=== PATIENT | female | born 1980 | race Two or more races ===

== ENCOUNTER 2016-05-10 16:09 | Emergency (ER) | payer MEDICAID ==
[2016-05-10 16:16] VITALS: TEMP 98.4
[2016-05-10] MEDS ORDERED: ONDANSETRON 4 MG/2 ML VIAL IVP ONE (16:29)
[2016-05-10] MEDS ORDERED: LORazepam 2 MG/ML INJ IVP ONE (16:29)
[2016-05-10] MEDS ORDERED: NS 1,000 ML IV ONE ×2 (16:29→17:45)
--- NOTE | 2016-05-10 16:34 | UCPHY ---
H & P Time Seen by Provider: 05/10/16 16:17 Patient Type: Established HPI/ROS: CHIEF COMPLAINT: Vomiting, abdominal pain HISTORY OF PRESENT ILLNESS: 36-year-old female presents to urgent care by private vehicle complaining of multiple episodes of vomiting over the last 3 days. The patient when on a binge and has been drinking heavily. Her last drink of alcohol was on Monday, 4 days ago. When she woke up on Monday she felt nauseous and has vomited multiple times since that time. She now has developed some epigastric abdominal pain which started yesterday. No hematemesis. No diarrhea. She had similar symptoms and was treated in urgent care September of 2014. No history of alcohol withdrawal seizure. She had previous tubal ligation and denies . She thinks her last known menstrual period was February of 2016. Denies chest pain or difficulty breathing. Denies any reported trauma. Denies urinary symptoms or back pain. REVIEW OF SYSTEMS: Constitutional: No fever, no chills. Eyes: No double or blurry vision. ENT: No sore throat. Respiratory: No cough, no shortness of breath. Cardiac: No chest pain. Gastrointestinal: Abdominal pain, vomiting as above. No diarrhea. Genitourinary: No dysuria. Musculoskeletal: No neck or back pain. Skin: No rashes. Neurological: No headache. Past Medical/Surgical History: Alcoholism, cholecystectomy Social History: Single and lives in [place] Smoking Status: Former smoker Physical Exam: General Appearance: Alert, no distress. Afebrile. No apparent distress. 121/80 , heart rate 62, 98% on room air. Eyes: Pupils equal and round. Extraocular motions are all intact. ENT: Mouth: Mucous membranes moist. Respiratory: No wheezing, rhonchi, or rales, lungs are clear to auscultation. Cardiovascular: Regular rate and rhythm. Gastrointestinal: Abdomen is soft. Tenderness with palpation in the epigastric area. There is no rebound, guarding or masses noted. No CVA tenderness bilaterally. Neurological: Alert and oriented x 3, cranial nerves II through XII grossly intact Skin: Warm and dry, no rashes. Musculoskeletal: Nontender to palpate along the cervical, thoracic or lumbar spine. Neck is supple. Extremities: Full range of motion and no peripheral edema. Psychiatric: Patient is oriented X 3, there is no agitation. Constitutional: Initial Vital Signs Temperature (C) 36.9 C 05/10/16 16:13 Heart Rate 62 05/10/16 16:13 Respiratory Rate 18 05/10/16 16:13 Blood Pressure 121/80 H 05/10/16 16:13 O2 Sat (%) 98 05/10/16 16:13 O2 Delivery Mode Room Air Allergies/Adverse Reactions: No Known Allergies Allergy (Verified 09/09/13 13:14) Home Medications: Medication Instructions Recorded LORazepam [Ativan] 1 mg PO Q6-8PRN PRN #5 tab 05/10/16 Ondansetron Odt [Zofran Odt] 4 mg PO Q4PRN #8 tab 05/10/16 Medical Decision Making ED Course/Re-evaluation: 36-year-old female presents to Urgent Care with multiple episodes of vomiting and now has developed abdominal pain. The patient was seen in September of 2014 with similar symptoms. White blood cell count is not elevated. Chemistries reveal elevated liver function tests. Lipase is normal. Remainder of the chemistries are within normal limits. Patient received IV normal saline as well as IV Zofran and IV Ativan. 6:05pm patient is feeling much better. She is no longer nauseous. She is asking for water to drink. Abdominal pain is better. She is on her 2nd L of IV normal saline. She wad given water to drink. Patient does not have an acute abdomen. I do not think CT imaging is necessary. Differential Diagnosis: Including but not limited to alcoholic gastritis, gastroesophageal reflux disease, peptic ulcer disease, pancreatitis, hepatitis, dehydration - Data Points Laboratory Results: Laboratory Results 05/10/16 16:38 05/10/16 16:38 05/10/16 16:38 WBC 4.29 10^3/uL (3.80-9.50) RBC 5.69 H 10^6/uL (4.18-5.33) Hgb 19.6 H g/dL (12.6-16.3) Hct 57.5 H % (38.0-47.0) MCV 101.1 H fL (81.5-99.8) MCH 34.4 H pg (27.9-34.1) MCHC 34.1 g/dL (32.4-36.7) RDW 13.2 % (11.5-15.2) Plt Count 167 10^3/uL (150-400) MPV 10.3 fL (8.7-11.7) Neut % (Auto) 76.2 H % (39.3-74.2) Lymph % (Auto) 15.6 % (15.0-45.0) [place] % (Auto) 7.5 % (4.5-13.0) Eos % (Auto) 0.0 L % (0.6-7.6) Baso % (Auto) 0.5 % (0.3-1.7) Nucleat RBC Rel Count 0.0 % (0.0-0.2) Absolute Neuts (auto) 3.27 10^3/uL (1.70-6.50) Absolute Lymphs (auto) 0.67 L 10^3/uL (1.00-3.00) Absolute Monos (auto) 0.32 10^3/uL (0.30-0.80) Absolute Eos (auto) 0.00 L 10^3/uL (0.03-0.40) Absolute Basos (auto) 0.02 10^3/uL (0.02-0.10) Absolute Nucleated RBC 0.00 10^3/uL (0-0.01) Immature Gran % 0.2 % (0.0-1.1) Immature Gran # 0.01 10^3/uL (0.00-0.10) Sodium 138 mEq/L (134-144) Potassium 3.7 mEq/L (3.5-5.2) Chloride 92 L mEq/L (97-110) Carbon Dioxide 30 mEq/l (22-31) Anion Gap 16 mEq/L (8-16) BUN 11 mg/dL (7-23) Creatinine 0.6 mg/dL (0.6-1.0) Estimated GFR > 60 Glucose 81 mg/dL (70-100) Calcium 9.0 mg/dL (8.5-10.4) Total Bilirubin 2.3 H mg/dL (0.1-1.4) Conjugated Bilirubin 0.9 H mg/dL (0.0-0.5) Unconjugated Bilirubin 1.4 H mg/dL (0.0-1.1) AST 104 H IU/L (14-46) ALT 67 H IU/L (9-52) Alkaline Phosphatase 390 H IU/L (38-126) Total Protein 7.8 g/dL (6.3-8.2) Albumin 3.8 g/dL (3.5-5.0) Lipase 87.0 IU/L (23-300) Beta HCG, Qual NEGATIVE Ethyl Alcohol < 10 mg/dL (0-10) Medications Given: Discontinued Medications Sodium Chloride (Ns) 1,000 mls @ 0 mls/hr IV ONCE ONE PRN Reason: Wide Open Stop: 05/10/16 16:30 Last Admin: 05/10/16 16:25 Dose: 1,000 mls Lorazepam (Ativan Injection) 1 mg IVP EDNOW ONE Stop: 05/10/16 16:30 Last Admin: 05/10/16 16:55 Dose: 1 mg Ondansetron HCl (Zofran) 4 mg IVP EDNOW ONE Stop: 05/10/16 16:30 Last Admin: 05/10/16 16:55 Dose: 4 mg Departure - Departure Disposition: Home, Routine, Self-Care Clinical Impression: Alcoholic gastritis Qualifiers: Chronicity: acute Gastritis bleeding: without bleeding Qualifier Code: (K29.20 ) Alcoholic gastritis without bleeding Condition: Good Instructions: Acute Nausea and Vomiting (ED), Gastritis (ED) Additional Instructions: Clear liquids and then slowly advance diet as tolerated. Zofran as needed for vomiting. Ativan can also help with vomiting. Do not take Ativan if you have been drinking alcohol. Please consider going back to AA for help with your alcoholism. Return or go to the ED if you develop recurring vomiting or if you feel worse in any way. Referrals: [facility] [Outside] - As per Instructions [facility] [Outside] - As per Instructions Prescriptions: LORazepam [Ativan] 1 mg PO Q6-8PRN PRN #5 tab PRN Reason: prn vomiting Ondansetron Odt [Zofran Odt] 4 mg PO Q4PRN #8 tab - PQRS PQRS Measurement: Not applicable
[2016-05-10 16:45] LABS: % IMMATURE GRANULYOCYTES 0.2 % (0.0-1.1); ABSOLUTE IMMATURE GRANULOCYTES 0.01 10^3/uL (0.00-0.10); ADD DIFF? NO; ADD MORPH? NO; ADD SCAN? NO; ATYPICAL LYMPHOCYTE FLAG 0 (0-99); FRAGMENT RBC FLAG 0 (0-99); HEMATOCRIT 57.5 % (38.0-47.0); HEMOGLOBIN 19.6 g/dL (12.6-16.3); LEFT SHIFT FLG 0 (0-99); LIPEMIA HEMOLYSIS FLAG 90 (0-99); MEAN CELL HEMOGLOBIN 34.4 pg (27.9-34.1); MEAN CELL HEMOGLOBIN CONCENTR. 34.1 g/dL (32.4-36.7); MEAN CELL VOLUME 101.1 fL (81.5-99.8); MEAN PLATELET VOLUME 10.3 fL (8.7-11.7); PLATELET CLUMPS FLAG 0 (0-99); PLATELET COUNT 167 10^3/uL (150-400); RED BLOOD CELL COUNT 5.69 10^6/uL (4.18-5.33); RED CELL DISTRIBUTION WIDTH 13.2 % (11.5-15.2)
[2016-05-10 17:05] LABS: ALANINE AMINOTRANSFERASE 67 IU/L (9-52); ALBUMIN 3.8 g/dL (3.5-5.0); ALKALINE PHOSPHATASE 390 IU/L (38-126); ANION GAP 16 mEq/L (8-16); ASPARTATE AMINOTRANSFERASE 104 IU/L (14-46); BILIRUBIN,TOTAL 2.3 mg/dL (0.1-1.4); BILIRUBIN-CONJUGATED 0.9 mg/dL (0.0-0.5); BILIRUBIN-UNCONJUGATED 1.4 mg/dL (0.0-1.1); CARBON DIOXIDE 30 mEq/l (22-31); CHLORIDE 92 mEq/L (97-110); CREATININE 0.6 mg/dL (0.6-1.0); GLOMERULAR FILTRATION RATE > 60; GLUCOSE 81 mg/dL (70-100); POTASSIUM 3.7 mEq/L (3.5-5.2); SODIUM 138 mEq/L (134-144); TOTAL PROTEIN 7.8 g/dL (6.3-8.2)
[2016-05-10 18:14] LABS: ETHANOL SERUM < 10 mg/dL (0-10)
[2016-05-10 18:48] VITALS: BP 121/69; PULSE 76; RESP 16; O2SAT 93
== END 2016-05-10 18:47 | disposition home or self-care (01) ==
LOC: CED 16:09
DX: K29.20 Alcoholic gastritis without bleeding (principal); R11.2 Nausea with vomiting, unspecified; F10.20 Alcohol dependence, uncomplicated
CPT/HCPCS: 80048-PO; 80076-PO; 83690-PO; 84703-PO; 85025-PO; 96361-PO; 96374-PO; 96375-PO; 99215-PO; G0463-PO; G0480; J2405

== ENCOUNTER 2016-07-28 11:59 | Emergency (ER) | payer MEDICAID ==
[2016-07-28 12:20] VITALS: BP 129/88; PULSE 78; RESP 16; TEMP 98.2
[2016-07-28 12:21] VITALS: O2SAT 90
[2016-07-28] MEDS ORDERED: IPRATROPIUM/ALBUTEROL 3 ML DEYVIAL IH ONE (12:35)
[2016-07-28 12:40] LABS: % IMMATURE GRANULYOCYTES 0.3 % (0.0-1.1); ABSOLUTE IMMATURE GRANULOCYTES 0.01 10^3/uL (0.00-0.10); ADD DIFF? NO; ADD MORPH? NO; ADD SCAN? NO; ATYPICAL LYMPHOCYTE FLAG 10 (0-99); FRAGMENT RBC FLAG 0 (0-99); HEMATOCRIT 56.2 % (38.0-47.0); HEMOGLOBIN 19.4 g/dL (12.6-16.3); LEFT SHIFT FLG 0 (0-99); LIPEMIA HEMOLYSIS FLAG 90 (0-99); MEAN CELL HEMOGLOBIN 33.9 pg (27.9-34.1); MEAN CELL HEMOGLOBIN CONCENTR. 34.5 g/dL (32.4-36.7); MEAN CELL VOLUME 98.3 fL (81.5-99.8); PLATELET CLUMPS FLAG 0 (0-99); PLATELET COUNT 190 10^3/uL (150-400); RED BLOOD CELL COUNT 5.72 10^6/uL (4.18-5.33); RED CELL DISTRIBUTION WIDTH 12.7 % (11.5-15.2)
[2016-07-28] MEDS ORDERED: ASPIRIN 81 MG CHEWABLE TAB PO ONE (12:46)
--- NOTE | 2016-07-28 12:56 | UCPHY ---
H & P Patient Type: Established Chief Complaint Nursing Narrative: Productive cough with dark brown/green sputum , fever (101 F), L lower back pain and L mid back pain with deep breath x 2 month worsening over last week. Time Seen by Provider: 07/28/16 12:28 HPI/ROS: This patient presents with cough, pleuritic pain or dyspnea. She explains that she has had a cough for 4-6 months since quitting smoking. She had been smoking 5 cigarettes a day or so for many years. Over the past 3-4 days her symptoms of chronic cough changed with increasing frequency of cough, feeling of chest congestion and wheeze, occasionally blood tinged sputum and right- sided pleuritic pain. Peak intensity is 8/10-current. She notes partial improvement from [id number] NSAIDs and no other exacerbating factors. She also reports mild lightheadedness today for the 1st time. ROS: No high fevers or chills. No other constitutional symptoms except for mild fatigue over the past 2-3 days. HEENT: No nasal congestion. No sore throat. Pulmonary: As per HPI. She notes occasional blood-tinged sputum, cardiovascular: No heart palpitations. No lower extremity swelling or calf pain. GI: No nausea or vomiting no belly pain. 10 point ROS is otherwise negative. Source: Patient Exam Limitations: No limitations - Personal History LMP (Females 10-55): Irregular Current Tetanus Diphtheria and Acellular Pertussis (TDAP): Yes Tetanus Vaccine Date: 2011 - Medical/Surgical History PMH: Family history is negative for DVT or PE. No history of premature coronary disease Hx Asthma: No Hx Chronic Respiratory Disease: No Hx Diabetes: No Hx Cardiac Disease: No Hx Renal Disease: No Hx Cirrhosis: No Hx Alcoholism: Yes Hx HIV/AIDS: No Hx Splenectomy or Spleen Trauma: No Other PMH: Cholecystectomy, ETOH - Family History Significant Family History: No pertinent family hx - Social History Smoking Status: Former smoker Alcohol Use: Rarely Drug Use: None - Physical Exam Exam: Vital signs are notable for hypoxia to the mid 80s on room air. General Appearance: Alert, no distress. Eyes: Pupils equal and round no pallor or injection. ENT, Mouth: Mucous membranes moist. Respiratory: She has rhonchi bilaterally, expiratory wheezing with prolonged expiratory phase, diminished breath sounds at the right base and slight rales that clear with cough at the right base. Cardiovascular: Regular rate and rhythm. No murmur gallop rub. No JVD. No peripheral edema. Gastrointestinal: Abdomen is soft and nontender, no masses, bowel sounds normal. Neurological: GCS 15 with no focal deficits. Skin: Warm and dry, no rashes. Musculoskeletal: Neck is supple nontender. Extremities are symmetrical, full range of motion. Psychiatric: Mood and affect normal DIFFERENTIAL DIAGNOSIS: After history and physical exam differential diagnosis was considered for PE, pneumonia, bronchitis, pneumothorax, coronary syndrome Constitutional: Initial Vital Signs Temperature (C) 36.8 C 07/28/16 12:00 Heart Rate 78 07/28/16 12:00 Respiratory Rate 16 07/28/16 12:00 Blood Pressure 129/88 H 07/28/16 12:00 O2 Sat (%) 85 L 07/28/16 12:00 O2 Delivery Mode Nasal Cannula O2 (L/minute) 4 Allergies/Adverse Reactions: No Known Allergies Allergy (Verified 07/28/16 12:20) Home Medications: Medication Instructions Recorded Albuterol Hfa Anes Only [Proair 2 puffs IH Q4 PRN #1 mdi 07/28/16 Hfa Icu (*)] Azithromycin [Zithromax] 250 mg PO DAILY #6 tab 07/28/16 Fluticasone Hfa 220 Mcg [Flovent 2 puffs IH DAILY #1 mdi 07/28/16 220 MCG Hfa MDI (*)] Ibuprofen 07/28/16 predniSONE 40 mg PO DAILY #10 tab 07/28/16 Medical Decision Making - Diagnostics EKG Interpretation: 12 lead EKG is performed shortly after arrival in revealed sinus rhythm with mild anterolateral T-wave abnormalities with no previous for comparison. Overall impression: Sinus rhythm with borderline T-wave abnormalities anterolaterally. Please refer to trace master for complete read. Imaging Results: Imaging Impressions Chest X-Ray 07/28/16 12:21 Impression: Mild perihilar bronchitis, without a focal infiltrate. Chest/Thorax CTA 07/28/16 12:56 Impression: 1. No definite pulmonary thromboemboli. 2. No aortic aneurysm or dissection. 3. No pericardial effusion, pleural effusion, or pneumothorax. 4. Mild bronchitis and airways disease. Findings discussed with Emergency Department physician, César Flores, at 1340 hours 07/28/2016. Final report concurs with initial preliminary interpretation. Chest x-ray: Bronchitis without focal infiltrate by my interpretation ED Course/Re-evaluation: IV, aspirin 324 Be given elevated D-dimer sent for CT angio which is negative for PE Patient is then treated with DuoNeb, 2 albuterol nebs with increased aeration decreased wheeze but persistent hypoxia on room air. Patient is treated with Zithromax antibiotic Prednisone 60 mg p.o. Discussion: Patient presents with bronchitis, pneumonitis resulting in hypoxia. We ruled out PE today with negative CT angio. Also no evidence of significant focal infiltrates on her chest x-ray or CT. At the time discharge although she has mild hypoxia on room air she corrects to low 90s on 2 L nasal cannula I think she is safe for discharge home without evidence of sepsis. She is negative lactate here normal CBC. Counseled regarding this and she is comfortable going home - Data Points Laboratory Results: Laboratory Results 07/28/16 12:35 07/28/16 12:35 07/28/16 07/28/16 07/28/16 12:38 12:38 12:35 WBC RBC Hgb Hct MCV MCH MCHC RDW Plt Count MPV Neut % (Auto) Lymph % (Auto) [place] % (Auto) Eos % (Auto) Baso % (Auto) Nucleat RBC Rel Count Absolute Neuts (auto) Absolute Lymphs (auto) Absolute Monos (auto) Absolute Eos (auto) Absolute Basos (auto) Absolute Nucleated RBC Immature Gran % Immature Gran # PT 13.8 SEC SEC (12.0-15.0) INR 1.09 (0.83-1.16) APTT 29.7 SEC SEC (23.0-38.0) D-Dimer 2.32 ug/mLFEU H ug/mLFEU (0.00-0.50) VBG Lactic Acid Sodium Potassium Chloride Carbon Dioxide Anion Gap BUN Creatinine Estimated GFR Glucose Calcium Troponin I < 0.012 ng/mL ng/mL (0-0.034) 07/28/16 07/28/16 07/28/16 12:35 12:35 12:35 WBC 3.86 10^3/uL 10^3/uL (3.80-9.50) RBC 5.72 10^6/uL H 10^6/uL (4.18-5.33) Hgb 19.4 g/dL H g/dL (12.6-16.3) Hct 56.2 % H % (38.0-47.0) MCV 98.3 fL fL (81.5-99.8) MCH 33.9 pg pg (27.9-34.1) MCHC 34.5 g/dL g/dL (32.4-36.7) RDW 12.7 % % (11.5-15.2) Plt Count 190 10^3/uL 10^3/uL (150-400) MPV 10.0 fL fL (8.7-11.7) Neut % (Auto) 51.2 % % (39.3-74.2) Lymph % (Auto) 34.5 % % (15.0-45.0) [place] % (Auto) 10.4 % % (4.5-13.0) Eos % (Auto) 2.8 % % (0.6-7.6) Baso % (Auto) 0.8 % % (0.3-1.7) Nucleat RBC Rel Count 0.0 % % (0.0-0.2) Absolute Neuts (auto) 1.98 10^3/uL 10^3/uL (1.70-6.50) Absolute Lymphs (auto) 1.33 10^3/uL 10^3/uL (1.00-3.00) Absolute Monos (auto) 0.40 10^3/uL 10^3/uL (0.30-0.80) Absolute Eos (auto) 0.11 10^3/uL 10^3/uL (0.03-0.40) Absolute Basos (auto) 0.03 10^3/uL 10^3/uL (0.02-0.10) Absolute Nucleated RBC 0.00 10^3/uL 10^3/uL (0-0.01) Immature Gran % 0.3 % % (0.0-1.1) Immature Gran # 0.01 10^3/uL 10^3/uL (0.00-0.10) PT INR APTT D-Dimer VBG Lactic Acid 1.1 mmol/L mmol/L (0.7-2.1) Sodium 140 mEq/L mEq/L (134-144) Potassium 3.7 mEq/L mEq/L (3.5-5.2) Chloride 98 mEq/L mEq/L (97-110) Carbon Dioxide 28 mEq/l mEq/l (22-31) Anion Gap 14 mEq/L mEq/L (8-16) BUN 8 mg/dL mg/dL (7-23) Creatinine 0.5 mg/dL L mg/dL (0.6-1.0) Estimated GFR > 60 Glucose 78 mg/dL mg/dL (70-100) Calcium 8.9 mg/dL mg/dL (8.5-10.4) Troponin I Medications Given: Discontinued Medications Albuterol (Proventil Neb) 3 ml IH EDNOW ONE Stop: 07/28/16 13:58 Last Admin: 07/28/16 13:52 Dose: 3 ml Albuterol (Proventil Neb) 3 ml IH EDNOW ONE Stop: 07/28/16 14:22 Last Admin: 07/28/16 14:30 Dose: 3 ml Albuterol/Ipratropium (Duoneb) 3 ml IH EDNOW ONE Stop: 07/28/16 12:36 Last Admin: 07/28/16 12:45 Dose: 3 ml Aspirin (Aspirin) 324 mg PO EDNOW ONE Stop: 07/28/16 12:47 Last Admin: 07/28/16 13:15 Dose: 324 mg Azithromycin (Zithromax) 500 mg PO EDNOW ONE PRN Reason: Protocol Stop: 07/28/16 13:45 Last Admin: 07/28/16 13:54 Dose: 500 mg Ketorolac Tromethamine (Toradol) 15 mg IVP EDNOW ONE Stop: 07/28/16 14:21 Last Admin: 07/28/16 14:20 Dose: 15 mg Prednisone (Prednisone) 60 mg PO EDNOW ONE Stop: 07/28/16 13:58 Last Admin: 07/28/16 14:05 Dose: 60 mg Departure - Departure Disposition: Home, Routine, Self-Care Clinical Impression: Pneumonitis, Chest pain, pleuritic, Hypoxia Acute bronchitis Qualifiers: Bronchitis organism: unspecified organism Qualified Code(s): J20.9 - Acute bronchitis, unspecified Condition: Good Instructions: Acute Bronchitis (ED) Additional Instructions: Diagnoses: 1. Acute bronchitis 2. Pneumonitis 3. Pleuritic chest pain 4. hypoxia Plan: Humidifier Albuterol inhaler with spacer for cough, wheeze or shortness of breath Zithromax antibiotic Prednisone as prescribed Flovent steroid inhaler in addition Home oxygen 2 Liters/ minute. Have a family member thump on your back as described to help clear mucus Call Dr. Dempsey - physician listed to arrange follow-up appointment for further evaluation for recheck sometime within the next 1-3 days. go to The emergency department for any significant worsening despite treatment plan Referrals: Rebecca Garcia MD [[facility] Primary Care Provider] - As per Instructions NONE *PRIMARY CARE P,. [Primary Care Provider] - As per Instructions Donato Dempsey MD [[facility] Primary Care Provider] - As per Instructions Stand Alone Forms: Work Excuse Prescriptions: Albuterol Hfa Anes Only [Proair Hfa Icu (*)] 2 puffs IH Q4 PRN #1 mdi PRN Reason: Wheezing Azithromycin [Zithromax] 250 mg PO DAILY #6 tab Fluticasone Hfa 220 Mcg [Flovent 220 MCG Hfa MDI (*)] 2 puffs IH DAILY #1 mdi predniSONE 40 mg PO DAILY #10 tab - PQRS PQRS Measurement: NA
[2016-07-28 13:01] LABS: ANION GAP 14 mEq/L (8-16); CALCIUM 8.9 mg/dL (8.5-10.4); CARBON DIOXIDE 28 mEq/l (22-31); CHLORIDE 98 mEq/L (97-110); CREATININE 0.5 mg/dL (0.6-1.0); GLOMERULAR FILTRATION RATE > 60; GLUCOSE 78 mg/dL (70-100); POTASSIUM 3.7 mEq/L (3.5-5.2); SODIUM 140 mEq/L (134-144)
[2016-07-28] MEDS ORDERED: IOPAMIDOL (ISOVUE 370) 100 ML BTL IV ONE (13:03)
--- NOTE | 2016-07-28 13:11 | CPEKG ---
Heart Rate: 74 RR Interval: 811 P-R Interval: 152 QRSD Interval: 80 QT Interval: 420 QTC Interval: 466 P Marion: 51 QRS Marion: -30 T Wave Marion: 7 EKG Severity - ABNORMAL ECG - EKG Impression: SINUS RHYTHM EKG Impression: LEFT AXIS DEVIATION EKG Impression: NONSPECIFIC T ABNORMALITIES, ANTERIOR LEADS Electronically Signed By: César Flores 28-Jul-2016 15:53:52
[2016-07-28 13:25] LABS: INR 1.09 (0.83-1.16); PROTIME(PATIENT) 13.8 SEC (12.0-15.0)
[2016-07-28 13:26] LABS: APTT 29.7 SEC (23.0-38.0)
[2016-07-28] MEDS ORDERED: AZITHROMYCIN 250 MG TAB PO ONE (13:44)
[2016-07-28] MEDS ORDERED: IPRATROPIUM/ALBUTEROL 3 ML DEYVIAL ONE (13:50)
[2016-07-28] MEDS ORDERED: predniSONE 20 MG TAB PO ONE (13:57)
[2016-07-28] MEDS ORDERED: ALBUTEROL 3 ML DEYVIAL IH ONE ×2 (13:57→14:21)
[2016-07-28] MEDS ORDERED: KETOROLAC 15 MG/1 ML SDV IVP ONE (14:20)
== END 2016-07-28 15:30 | disposition home or self-care (01) ==
LOC: CED 11:59
DX: J18.9 Pneumonia, unspecified organism (principal); J20.9 Acute bronchitis, unspecified; R07.1 Chest pain on breathing; R09.02 Hypoxemia
CPT/HCPCS: 71020-PO; 71275-PO; 80048-PO; 83605-PO; 84484-PO; 85025-PO; 85378-PO; 85610-PO; 85730-PO; 93010-PO; 96374-PO; 99215-PO; G0463-PO; J1885; Q9967

== ENCOUNTER 2016-09-01 12:42 | Observation (INO) | payer MEDICAID ==
[2016-09-01] MEDS ORDERED: IPRATROPIUM/ALBUTEROL 3 ML DEYVIAL IH ONE (13:02)
--- NOTE | 2016-09-01 13:42 | EDPHY ---
H & P Time Seen by Provider: 09/01/16 13:42 HPI/ROS: Chief complaint. Shortness of breath HPI. 36-year-old female presents emergency department with 1 week history of chest tightness, cough that is productive green brown sputum, fever to 102 degrees. She was seen July 28 for similar symptoms and was treated with Zithromax and albuterol and prednisone. She got better. Now symptoms are worse again. Somewhat short of breath especially with exertion. No unusual leg pain or swelling. Some upper congestion in nose. Slight sore throat. ROS Constitutional. Fever Eyes. no problems with vision ENT. Nasal congestion Cardiovascular. Chest tightness especially with cough Respiratory. Shortness of breath and productive cough Abdominal. no abdominal pain, no nausea/vomiting, no diarrhea . no problems urinating MS. no calf pain/swelling, no neck/back pain, no joint pain Skin. no rash Lymph. no swollen glands Neuro. no headache, no dizziness, no difficulty walking or with speech Past Medical/Surgical History: Past medical history cholecystectomy, alcoholism Social History: Single, recently quit smoking, no alcohol Smoking Status: Former smoker Physical Exam: General Appearance: Alert well-developed female moderate distress vital signs show temp 37.3degrees, heart rate 108, O2 saturation 89% on room air Eyes: Pupils equal and round no pallor or injection. ENT, Mouth: Mucous membranes are moist. Respiratory: No retractions inspiratory expiratory rhonchi and end-expiratory wheezing Cardiovascular: Regular rate and rhythm. Gastrointestinal: Abdomen is soft and nontender, no masses, bowel sounds normal. Neurological: Awake and alert, sensory and motor exams grossly normal. Skin: Warm and dry, no rashes. Musculoskeletal: Neck is supple nontender. Extremities symmetrical, full range of motion. Psychiatric: Patient is oriented X 3, there is no agitation. Constitutional: Initial Vital Signs Temperature (C) 37.3 C 09/01/16 12:52 Heart Rate 108 H 09/01/16 12:52 Respiratory Rate 16 09/01/16 12:52 Blood Pressure 109/79 09/01/16 12:52 O2 Sat (%) 89 L 09/01/16 12:52 O2 Delivery Mode Room Air Allergies/Adverse Reactions: No Known Allergies Allergy (Verified 09/01/16 12:50) Home Medications: Medication Instructions Recorded Albuterol Hfa Anes Only [Proair 2 puffs IH Q4 PRN #1 mdi 07/28/16 Hfa Icu (*)] Fluticasone Hfa 220 Mcg [Flovent 2 puffs IH DAILY #1 mdi 07/28/16 220 MCG Hfa MDI (*)] Medical Decision Making - Diagnostics Imaging Results: Imaging Impressions Chest X-Ray 09/01/16 13:14 Impression: 1. Bronchitis/airways disease. 2. No definite focal pneumonia. Chest x-ray interpreted by me is consistent with bronchitis. No pneumonia Procedures: DuoNeb updraft IV normal saline. Solu-Medrol IV Albuterol updraft ED Course/Re-evaluation: Re-evaluation at 2:30 a.m. and patient is lung sounds are somewhat better. She still has rhonchi but the end-expiratory wheezing is improved. Patient's lactate is elevated. She has had blood cultures and him giving her antibiotics. She and I discussed imaging and lab results. We discussed treatment plan including hospitalization. She expresses understanding and agreement I consulted and discussed case with Dr. Bartlett, hospitalist, who agrees to the admission Differential Diagnosis: I considered pneumonia, bronchitis, sepsis. Patient meets criteria for sepsis. She has an elevated lactate which puts her into the category is severe sepsis. Blood pressure is okay though no evidence for septic shock - Data Points Laboratory Results: Laboratory Results 09/01/16 14:15 09/01/16 14:15 09/01/16 09/01/16 09/01/16 14:15 14:15 14:15 WBC 4.67 10^3/uL 10^3/uL (3.80-9.50) RBC 5.44 10^6/uL H 10^6/uL (4.18-5.33) Hgb 18.3 g/dL H g/dL (12.6-16.3) Hct 53.7 % H % (38.0-47.0) MCV 98.7 fL fL (81.5-99.8) MCH 33.6 pg pg (27.9-34.1) MCHC 34.1 g/dL g/dL (32.4-36.7) RDW 13.5 % % (11.5-15.2) Plt Count 171 10^3/uL 10^3/uL (150-400) MPV 10.1 fL fL (8.7-11.7) Neut % (Auto) 38.1 % L % (39.3-74.2) Lymph % (Auto) 49.9 % H % (15.0-45.0) [place] % (Auto) 8.6 % % (4.5-13.0) Eos % (Auto) 2.1 % % (0.6-7.6) Baso % (Auto) 1.1 % % (0.3-1.7) Nucleat RBC Rel Count 0.0 % % (0.0-0.2) Absolute Neuts (auto) 1.78 10^3/uL 10^3/uL (1.70-6.50) Absolute Lymphs (auto) 2.33 10^3/uL 10^3/uL (1.00-3.00) Absolute Monos (auto) 0.40 10^3/uL 10^3/uL (0.30-0.80) Absolute Eos (auto) 0.10 10^3/uL 10^3/uL (0.03-0.40) Absolute Basos (auto) 0.05 10^3/uL 10^3/uL (0.02-0.10) Absolute Nucleated RBC 0.00 10^3/uL 10^3/uL (0-0.01) Immature Gran % 0.2 % % (0.0-1.1) Immature Gran # 0.01 10^3/uL 10^3/uL (0.00-0.10) VBG Lactic Acid 2.7 mmol/L H mmol/L (0.7-2.1) Sodium 146 mEq/L H mEq/L (134-144) Potassium 3.5 mEq/L mEq/L (3.5-5.2) Chloride 101 mEq/L mEq/L (97-110) Carbon Dioxide 27 mEq/l mEq/l (22-31) Anion Gap 18 mEq/L H mEq/L (8-16) BUN 7 mg/dL mg/dL (7-23) Creatinine 0.5 mg/dL L mg/dL (0.6-1.0) Estimated GFR > 60 Glucose 107 mg/dL H mg/dL (70-100) Calcium 8.7 mg/dL mg/dL (8.5-10.4) Medications Given: Discontinued Medications Albuterol (Proventil Neb) 3 ml IH EDNOW ONE Stop: 09/01/16 14:02 Last Admin: 09/01/16 14:17 Dose: 3 ml Albuterol/Ipratropium (Duoneb) 3 ml IH EDNOW ONE Stop: 09/01/16 13:03 Last Admin: 09/01/16 13:09 Dose: 3 ml Sodium Chloride (Ns) 1,000 mls @ 0 mls/hr IV ONCE ONE PRN Reason: Wide Open Stop: 09/01/16 14:02 Last Admin: 09/01/16 14:17 Dose: 1,000 mls Methylprednisolone Sodium Succinate (Solu-Medrol) 125 mg IVP EDNOW ONE Stop: 09/01/16 14:02 Last Admin: 09/01/16 14:17 Dose: 125 mg Departure - Departure Disposition: [facility] Inpatient Acute Clinical Impression: elevated lactate, Severe sepsis Acute bronchitis Qualifiers: Bronchitis organism: unspecified organism Qualified Code(s): J20.9 - Acute bronchitis, unspecified Condition: Fair Referrals: NONE *PRIMARY CARE P,. [Primary Care Provider] - As per Instructions
[2016-09-01] MEDS ORDERED: methylPREDNISolone SOD SUCC 125 MG/2 ML VIAL IVP ONE (14:01)
[2016-09-01] MEDS ORDERED: ALBUTEROL 3 ML DEYVIAL IH ONE (14:01)
[2016-09-01] MEDS ORDERED: NS 1,000 ML IV ONE ×3 (14:01→21:28)
[2016-09-01 14:21] LABS: % IMMATURE GRANULYOCYTES 0.2 % (0.0-1.1); ABSOLUTE IMMATURE GRANULOCYTES 0.01 10^3/uL (0.00-0.10); ADD DIFF? NO; ADD MORPH? NO; ADD SCAN? NO; ATYPICAL LYMPHOCYTE FLAG 10 (0-99); FRAGMENT RBC FLAG 0 (0-99); HEMATOCRIT 53.7 % (38.0-47.0); HEMOGLOBIN 18.3 g/dL (12.6-16.3); LEFT SHIFT FLG 0 (0-99); LIPEMIA HEMOLYSIS FLAG 90 (0-99); MEAN CELL HEMOGLOBIN 33.6 pg (27.9-34.1); MEAN CELL HEMOGLOBIN CONCENTR. 34.1 g/dL (32.4-36.7); MEAN CELL VOLUME 98.7 fL (81.5-99.8); MEAN PLATELET VOLUME 10.1 fL (8.7-11.7); PLATELET CLUMPS FLAG 10 (0-99); PLATELET COUNT 171 10^3/uL (150-400); RED BLOOD CELL COUNT 5.44 10^6/uL (4.18-5.33); RED CELL DISTRIBUTION WIDTH 13.5 % (11.5-15.2)
[2016-09-01 14:35] LABS: ANION GAP 18 mEq/L (8-16); CALCIUM 8.7 mg/dL (8.5-10.4); CARBON DIOXIDE 27 mEq/l (22-31); CHLORIDE 101 mEq/L (97-110); CREATININE 0.5 mg/dL (0.6-1.0); GLOMERULAR FILTRATION RATE > 60; GLUCOSE 107 mg/dL (70-100); POTASSIUM 3.5 mEq/L (3.5-5.2); SODIUM 146 mEq/L (134-144)
[2016-09-01] MEDS ORDERED: AZITHROMYCIN IV 500 MG in D5W 250 ML IV ONE (14:43)
[2016-09-01] MEDS ORDERED: NS 100 ML BAG (MINI-BAG) IV ONE (14:51)
[2016-09-01 16:10] VITALS: RESP 16
[2016-09-01] MEDS ORDERED: HYDROmorphONE/DILAUDID 1 MG/ML SYR IVP PRN (17:48)
[2016-09-01] MEDS ORDERED: ALBUTEROL 3 ML DEYVIAL IH PRN (17:49)
[2016-09-01] MEDS: oxyCODONE IR 5 MG TAB PO PRN ×3 (18:03→20:59)
[2016-09-01] MEDS ORDERED: ONDANSETRON DISINTEGRATING 4 MG TAB PO PRN (20:05)
[2016-09-01] MEDS ORDERED: ACETAMINOPHEN 325 MG TAB PO PRN (20:05)
[2016-09-01] MEDS ORDERED: ONDANSETRON 4 MG/2 ML VIAL IVP PRN (20:05)
[2016-09-01] MEDS ORDERED: NS 1,000 ML IV SCH (20:15)
[2016-09-01 20:21] VITALS: BP 102/65; TEMP 98.7
[2016-09-01 20:38] VITALS: PULSE 85; O2SAT 95
--- NOTE | 2016-09-01 20:59 | GHP ---
[f rep st] HISTORY AND PHYSICAL DATE OF ADMISSION: 09/01/2016 CHIEF COMPLAINT: Cough and shortness of breath. HISTORY OF PRESENT ILLNESS: This is a 36-year-old female, who quit smoking about 5 or 6 months ago. Prior to that she was developing cough with some purulent sputum, and shortness of breath, and whe ezing. This prompted her to quit smoking. However, her symptoms continued, although improved somew hat after initially improved after quitting smoking. She went to urgent care in July and was given steroids. She says this helped somewhat, but continues to have cough. She does produce some green and rust-colored sputum. She has had some chills and fever, and then chills the last couple days. She is wheezing. She also has some chest pressure. REVIEW OF SYSTEMS: A 10-point review of systems was obtained; and other than stated was negative. PAST MEDICAL HISTORY: None. MEDICATIONS: Flovent and albuterol prescribed a month ago. SOCIAL HISTORY: Quit smoking 6 months ago. Also quit alcohol. FAMILY HISTORY: Reviewed and noncontributory. PHYSICAL EXAMINATION: VITAL SIGNS: Afebrile. Blood pressure is 110/73, heart rate 92. Oxygen sat uration was 87% on room air, 94% on 2 L. GENERAL: The patient is well developed, no apparent distr ess. HEENT: Nonicteric sclerae. Extraocular movements intact. Moist mucous membranes. NECK: [place] pple. No thyromegaly. LUNGS: Good effort. There is some coarse wheezes and some slight rhonchi b ilaterally, but fair air movement. CARDIOVASCULAR: Regular rate and rhythm. No murmurs or gallops . ABDOMEN: Positive bowel sounds. Soft, nontender, nondistended. No hepatosplenomegaly. EXTREMI TIES: No clubbing, cyanosis, or edema. SKIN: Without rash. Warm, dry, intact. NEUROLOGIC: Aler t and oriented x3. Moving all 4 extremities equally. PSYCH: Normal affect. LABS: White count is 4, hemoglobin 18, platelets are 171. Lactic acid is elevated at 2.7. Sodium 146, potassium 3.5, BUN is 7, creatinine 0.5, anion gap slightly elevated at 18. IMAGING: Chest x-ray personally reviewed and interpreted as possible bronchitis, but no pneumonia. ASSESSMENT: This is a 36-year-old female, presenting with reactive airway disease with subacute anaid terial bronchitis. PLAN: Reactive airways with bronchitis: The patient has never been treated with antibiotics. She does have some purulent sputum. She might have some subacute bacterial infection. We will treat wi th azithromycin to cover both atypicals and typical. We will also continue with prednisone, start a prednisone burst, as well as nebulizer treatments. /[id number]/MODL
[2016-09-01] MEDS ORDERED: IPRATROPIUM/ALBUTEROL 3 ML DEYVIAL IH SCH (21:00)
[2016-09-01 22:27] LABS: COLOR YELLOW; LEUKOCYTE ESTERASE,URINE NEGATIVE (NEGATIVE); NITRITE,URINE NEGATIVE (NEGATIVE)
[2016-09-02] MEDS ORDERED: AZITHROMYCIN 250 MG TAB PO SCH (09:00)
[2016-09-02] MEDS ORDERED: predniSONE 20 MG TAB PO SCH (09:00)
[2016-09-02] MEDS ORDERED: FLUTICASONE HFA 220 MCG MDI IH SCH (09:00)
== END 2016-09-01 23:10 | disposition left against medical advice (07) ==
LOC: CED 12:42 → CEDHOLD 14:47 → F1N 17:04
PROVIDERS: ADMIT Internal Medicine; ATTEND Internal Medicine
DX: J20.9 Acute bronchitis, unspecified (principal); R06.2 Wheezing; Z87.891 Personal history of nicotine dependence
CPT/HCPCS: 71020; 96361; 96365; 96367; 96375; 99285; G0378; 80048-PO; 83605-PO; 85025-PO; J0456; J0696; J1170

== ENCOUNTER 2016-11-03 15:03 | Emergency (ER) | payer MEDICAID ==
[2016-11-03] MEDS ORDERED: predniSONE 20 MG TAB PO ONE (15:15)
[2016-11-03] MEDS ORDERED: IPRATROPIUM/ALBUTEROL 3 ML DEYVIAL IH ONE (15:15)
--- NOTE | 2016-11-03 15:21 | EDPHY ---
H & P Time Seen by Provider: 11/03/16 15:09 HPI/ROS: HPI Asthma exacerbation. 28-year-old female by private vehicle. She has a history of asthma. She is on home oxygen for a combination of asthma and chronic bronchitis. She reports that she ran out of her medications 2 days ago. These medications include albuterol and Flovent. She reports that since this time she has had progressively worsening shortness of breath and wheezing. She has also had a chronic cough for months and states that this is slightly worse than it has been. She describes it is dry, nonproductive. ROS: Constitutional: No fever, no chills. No weakness. Eyes: No discharge. No changes in vision. ENT: No sore throat. No nasal congestion or rhinorrhea. Respiratory: As above. Cardiac: No chest pain, no palpitations. Gastrointestinal: No abdominal pain, no vomiting, no diarrhea. Genitourinary: No hematuria. No dysuria or increased frequency with urination. Musculoskeletal: No back pain. No neck pain. No myalgias or arthralgias. Skin: No rashes. Neurological: No headache. No focal weakness or altered sensation. Past medical history: Asthma/reactive airway disease/bronchitis. Former alcoholic. Cholecystectomy. She reports that she has not had a drink in months. Social history: Former smoker, quit 6 months ago. Here by herself. As above. Physical Exam: General Appearance: Alert, no distress. This patient is responding to questions appropriately and in full sentences. This patient appears well- hydrated and well-nourished. Eyes: Pupils equal and round no pallor or injection. No lid edema, erythema or injection. Respiratory: There are no retractions, diffuse wheezing, greater on exhalation throughout, decreased air movement, intermittent dry cough. Cardiovascular: Regular rate and rhythm. No murmur. Neurological: Motor sensory function is grossly intact. Cranial nerves are normal. Gait is normal. Skin: Warm and dry, no rashes. Musculoskeletal: Neck is supple and nontender. Extremities are symmetrical. All joints range without pain or impingement. Psychiatric: No agitation. No depression. Database: EKG: Imaging: Chest x-ray AP portable; the cardiac mediastinal silhouette is unremarkable. No evidence of infiltrate or pneumothorax. No acute cardiopulmonary disease process noted. Interpreted by me. Procedures: Emergency department course: Patient placed on a monitor. Room air pulse oximetry 85-86%. On 2-3 L nasal cannula oxygen to comes up into the mid 90s. She will be given 3 [id number] albuterol/Atrovent nebulizer treatments. She was given 80 mg of oral prednisone. internet technology manager will be consulted to arrange for follow-up with a primary care physician for continuity care and ongoing management of her reactive airway disease. She needs refills for her prescription for Flovent and albuterol. Her medical records reviewed. She was seen in the emergency department with a similar presentation this last August. She was admitted to the hospitalist service. However, the hospitalist saw her and it appears that she improved and she was then discharged from the emergency department without having gone to the floor. Follow-up was arranged for her discussed with her but she has not followed up. 4:00 p.m., patient re-evaluated. She has finished the above medications. She states she feels a little bit better. Repeat pulmonary exam she is still tight with poor air movement and diffuse wheezing and rhonchi bilaterally. Room air pulse oximetry is 82%. She will be started on a 15 mL continuous albuterol nebulizer. An IV was established. She will be given 2 g of IV magnesium and 125 mg of IV Solu-Medrol. 6:00 p.m., patient re-evaluated. She is finish the above medications. She is feeling much better. She is requesting discharge at this time. Repeat pulmonary exam she has improved air movement and decreased wheezing. She still has some wheezing on exhalation. No tachypnea. Pulse oximetry on 2 L nasal cannula oxygen is in the mid 90s. She has oxygen at home. I did discuss admission with her. I discussed my concerns. She does not want to be admitted and is declining admission. Plan will be to send her home with a prescription for her Flovent which she will fill immediately as well as a short course of prednisone. She was also given a albuterol meter dose inhaler as a take-home pack. We have arranged for a follow-up appointment on Monday with Eduarda. She ensures me she will follow up for ongoing management of her reactive airway disease. She lives near the emergency department and can easily return if her condition worsens. Return to emergency department precautions were thoroughly reviewed with her with her full understanding. All of her questions were answered. She was discharged in good condition. Differential Diagnosis: The differential diagnosis on this patient includes but is not limited to acute bronchitis, asthma exacerbation, reactive airway disease, pneumonia, congestive heart failure. This represents a partial list of diagnoses considered. These considerations are based on history, physical exam, past history, reassessment and diagnostic testing. Smoking Status: Former smoker Constitutional: Initial Vital Signs Temperature (C) 37.1 C 11/03/16 15:10 Heart Rate 84 11/03/16 15:10 Respiratory Rate 20 11/03/16 15:10 Blood Pressure 113/86 H 11/03/16 15:10 O2 Sat (%) 96 11/03/16 15:10 O2 Delivery Mode Room Air O2 (L/minute) 2 Allergies/Adverse Reactions: No Known Allergies Allergy (Verified 11/03/16 15:14) Home Medications: Medication Instructions Recorded Fluticasone Hfa 220 Mcg [Flovent 2 puffs IH DAILY #1 mdi 07/28/16 220 MCG Hfa MDI (*)] Albuterol Hfa Anes Only [Proair 2 puffs IH Q4 PRN #1 mdi 11/03/16 Hfa Icu (*)] Fluticasone Hfa 220 Mcg [Flovent 1 puffs IH BID #1 mdi 11/03/16 220 MCG Hfa MDI (*)] predniSONE [prednisone 20mg (RX)] 60 mg PO DAILY #9 tab 11/03/16 Medical Decision Making - Diagnostics Imaging Results: Imaging Impressions Chest X-Ray 11/03/16 15:16 Impression: Stable and negative. - Data Points Medications Given: Discontinued Medications Albuterol (Proventil Neb) 15 ml IH CONT ONE Stop: 11/03/16 16:01 Last Admin: 11/03/16 16:13 Dose: 15 ml Albuterol Sulfate (Proventil Inh Prepack) 1 mdi TAKEHOME EDNOW ONE Stop: 11/03/16 15:52 Last Admin: 11/03/16 18:35 Dose: 1 mdi Albuterol/Ipratropium (Duoneb) 9 ml IH EDNOW ONE Stop: 11/03/16 15:16 Last Admin: 11/03/16 15:31 Dose: 9 ml Magnesium Sulfate (Magnesium Sulf 2 Gm (Premix)) 50 mls @ 50 mls/hr IV EDNOW ONE Stop: 11/03/16 16:59 Last Admin: 11/03/16 16:17 Dose: 50 mls Methylprednisolone Sodium Succinate (Solu-Medrol) 125 mg IVP EDNOW ONE Stop: 11/03/16 16:01 Last Admin: 11/03/16 16:12 Dose: 125 mg Prednisone (Prednisone) 80 mg PO EDNOW ONE Stop: 11/03/16 15:16 Last Admin: 11/03/16 15:29 Dose: 80 mg Departure - Departure Disposition: Home, Routine, Self-Care Clinical Impression: Asthma exacerbation, Bronchitis Condition: Good Instructions: Albuterol (By breathing), How to Use a Nebulizer (ED), Bronchospasm (ED) Additional Instructions: Read and follow provided instructions. Follow-up with your primary care physician on Monday as we have arranged for you and as scheduled through [facility]. Take medication as prescribed through entire course of treatment. Return to the emergency department immediately for worsening shortness of breath , cough, fever, wheezing or other serious concerns. Referrals: NONE *PRIMARY CARE P,. [Primary Care Provider] - As per Instructions [facility] [Clinic] - As per Instructions Stand Alone Forms: School Excuse Prescriptions: Albuterol Hfa Anes Only [Proair Hfa Icu (*)] 2 puffs IH Q4 PRN #1 mdi PRN Reason: Wheezing Fluticasone Hfa 220 Mcg [Flovent 220 MCG Hfa MDI (*)] 1 puffs IH BID #1 mdi predniSONE [prednisone 20mg (RX)] 60 mg PO DAILY #9 tab
[2016-11-03] MEDS ORDERED: ALBUTEROL INH PREPACK MDI TAKEHOME ONE ×2 (15:51→18:32)
[2016-11-03] MEDS ORDERED: ALBUTEROL 3 ML DEYVIAL IH ONE (16:00)
[2016-11-03] MEDS ORDERED: methylPREDNISolone SOD SUCC 125 MG/2 ML VIAL IVP ONE (16:00)
[2016-11-03] MEDS ORDERED: MAGNESIUM SULF 2 GM/WATER 50 ML IV ONE (16:00)
[2016-11-03] MEDS ORDERED: ALBUTEROL 3 ML DEYVIAL ONE (16:04)
[2016-11-03 18:45] VITALS: BP 116/72; PULSE 118; RESP 22; TEMP 98.4; O2SAT 88
== END 2016-11-03 18:48 | disposition home or self-care (01) ==
LOC: CED 15:03
DX: J45.901 Unspecified asthma with (acute) exacerbation (principal); Z87.891 Personal history of nicotine dependence
CPT/HCPCS: 71010-PO

== ENCOUNTER 2016-11-30 19:07 | Emergency (ER) | payer MEDICAID ==
--- NOTE | 2016-11-30 19:09 | EDPHY ---
H & P HPI/ROS: HPI CHIEF COMPLAINT: Vomiting and shortness of breath HISTORY OF PRESENT ILLNESS: This patient very pleasant 36-year-old female she does have significant past medical history for severe asthma chronic bronchitis and oxygen dependent. She wears 2 L of oxygen. She decided come to the emergency room by private vehicle. She did not bring her oxygen with her. Upon arrival here we placed on oxygen. She decided come the emergency room if she has had 2 days or 48 hours of persistent nausea vomiting. She denies any chest pain or abdominal pain. Denies diarrhea, or urinary symptoms. She does report a fever 101 yesterday. No fever today. Main complaint is nausea vomiting. She distally tells me she feels weak all over. Past Medical History: Asthma, chronic bronchitis, alcoholism Past Surgical History: Gallbladder removal Social History: History of tobacco abuse and alcohol abuse Family History: Noncontributory ROS REVIEW OF SYSTEMS: A comprehensive 10 point review of systems is otherwise negative aside from elements mentioned in the history of present illness. Exam Constitutional appears well nontoxic no acute distress triage nursing summary reviewed, vital signs reviewed, awake/alert. Oxygen saturation at triage 85% on room air. 2 L nasal cannula was applied sat is 92% Eyes normal conjunctivae and sclera, EOMI, PERRLA. HENT normal inspection, atraumatic, moist mucus membranes, no epistaxis, neck supple/ no meningismus, no raccoon eyes. Respiratory wheezing bilaterally faint, , normal breath sounds, no respiratory distress Cardiovascular rate normal, regular rhythm, no murmur, no edema, distal pulses normal. Gastrointestinal soft, non-tender, no rebound, no guarding, normal bowel sounds, no distension, no pulsatile mass. Genitourinary no CVA tenderness. Musculoskeletal no midline vertebral tenderness, full range of motion, no calf swelling, no tenderness of extremities, no meningismus, good pulses, neurovascularly intact. Skin pink, warm, & dry, no rash, skin atraumatic. Neurologic awake, alert and oriented x 3, AAOx3, moves all 4 extremities equally, motor intact, sensory intact, CN II-XII intact, normal cerebellar, normal vision, normal speech. Psychiatric normal mood/affect. Heme/Lymph/Immune no lymphadenopathy. Differential Diagnosis: Includes but is not limited to in a particular order, dehydration, electrolyte disturbance, pneumonia, bowel obstruction, gastritis, electrolyte disturbance, hyponatremia, urinary tract infection Medical Decision Making: Plan for this patient IV establishment with IV fluid bolus 4 mg Zofran, DuoNeb breathing treatment, chest x-ray two view, check electrolytes, urinalysis and re-evaluate. Re-evaluation: EKG interpretation by me on record in [employer] system. Impression time of EKG 1929, this is sinus rhythm rate of 82, left anterior fascicular block present. T-wave abnormalities noted V1 V2 V3. Otherwise no ST elevation. No significant ST depression. Unremarkable EKG except for T-wave abnormality noted in V1 V2 V3. Will compared to old EKG. 2038: Re-evaluation at this time patient resting comfortably. She feels much better after DuoNeb breathing treatment. Re-examination of her lungs wheezing greatly improved. No respiratory distress. Blood work has been reviewed. Noted elevated LFTs and bilirubin. She has had similar elevations in the past. This does not appear to be in acute change. She has no right upper quadrant pain. She understands follow-up with primary care doctor about this. Again make sure she refrain from drinking alcohol. Allow her to go home with oral prednisone and albuterol inhaler. 60 mg prednisone has been given here in the emergency room. She understands to return emergency room she develops worsening symptoms shortness of breath, fever, vomiting questions or concerns. Chest x-ray reviewed. No acute cardiopulmonary disease. Image interpreted by myself. Pulse ox normal on 2 L nasal cannula. No respiratory distress. Feeling well. Patient like to go home. Source: Patient - Personal History Tetanus Vaccine Date: 2011 - Medical/Surgical History Hx Asthma: Yes Hx Chronic Respiratory Disease: No Hx Diabetes: No Hx Cardiac Disease: No Hx Renal Disease: No Hx Cirrhosis: No Hx Alcoholism: Yes Hx HIV/AIDS: No Hx Splenectomy or Spleen Trauma: No Other PMH: Cholecystectomy, ETOH; past HX of Drug Abuse. Surg-tubal, ASTHMA - Social History Smoking Status: Former smoker Constitutional: Initial Vital Signs Temperature (C) 37.1 C 11/30/16 19:19 Heart Rate 89 11/30/16 19:19 Respiratory Rate 20 11/30/16 19:19 Blood Pressure 121/75 H 11/30/16 19:19 O2 Sat (%) 85 L 11/30/16 19:19 O2 Delivery Mode Room Air Allergies/Adverse Reactions: No Known Allergies Allergy (Verified 11/30/16 19:17) Home Medications: Medication Instructions Recorded Fluticasone Hfa 220 Mcg [Flovent 2 puffs IH DAILY #1 mdi 07/28/16 220 MCG Hfa MDI (*)] Albuterol Hfa Anes Only [Proair 2 puffs IH Q4 PRN #1 mdi 11/03/16 Hfa Icu (*)] Albuterol [Proventil Inhaler HFA 1 - 2 puffs IH Q4H #1 mdi 11/30/16 (*)] predniSONE 60 mg PO DAILY #15 tab 11/30/16 Medical Decision Making - Data Points Laboratory Results: Laboratory Results 11/30/16 19:40 11/30/16 19:40 11/30/16 11/30/16 11/30/16 19:55 19:40 19:40 WBC RBC Hgb Hct MCV MCH MCHC RDW Plt Count MPV Neut % (Auto) Lymph % (Auto) [place] % (Auto) Eos % (Auto) Baso % (Auto) Nucleat RBC Rel Count Absolute Neuts (auto) Absolute Lymphs (auto) Absolute Monos (auto) Absolute Eos (auto) Absolute Basos (auto) Absolute Nucleated RBC Immature Gran % Immature Gran # PT 13.7 SEC SEC (12.0-15.0) INR 1.08 (0.83-1.16) APTT 27.4 SEC SEC (23.0-38.0) VBG Lactic Acid 1.7 mmol/L mmol/L (0.7-2.1) Sodium Potassium Chloride Carbon Dioxide Anion Gap BUN Creatinine Estimated GFR Glucose Calcium Total Bilirubin Conjugated Bilirubin Unconjugated Bilirubin AST ALT Alkaline Phosphatase Troponin I Total Protein Albumin Lipase Beta HCG, Qual NEGATIVE 11/30/16 11/30/16 19:40 19:40 WBC 3.73 10^3/uL L 10^3/uL (3.80-9.50) RBC 4.79 10^6/uL 10^6/uL (4.18-5.33) Hgb 16.2 g/dL g/dL (12.6-16.3) Hct 46.0 % % (38.0-47.0) MCV 96.0 fL fL (81.5-99.8) MCH 33.8 pg pg (27.9-34.1) MCHC 35.2 g/dL g/dL (32.4-36.7) RDW 13.4 % % (11.5-15.2) Plt Count 227 10^3/uL 10^3/uL (150-400) MPV 10.3 fL fL (8.7-11.7) Neut % (Auto) 59.4 % % (39.3-74.2) Lymph % (Auto) 28.2 % % (15.0-45.0) [place] % (Auto) 10.2 % % (4.5-13.0) Eos % (Auto) 0.8 % % (0.6-7.6) Baso % (Auto) 1.1 % % (0.3-1.7) Nucleat RBC Rel Count 0.0 % % (0.0-0.2) Absolute Neuts (auto) 2.22 10^3/uL 10^3/uL (1.70-6.50) Absolute Lymphs (auto) 1.05 10^3/uL 10^3/uL (1.00-3.00) Absolute Monos (auto) 0.38 10^3/uL 10^3/uL (0.30-0.80) Absolute Eos (auto) 0.03 10^3/uL 10^3/uL (0.03-0.40) Absolute Basos (auto) 0.04 10^3/uL 10^3/uL (0.02-0.10) Absolute Nucleated RBC 0.00 10^3/uL 10^3/uL (0-0.01) Immature Gran % 0.3 % % (0.0-1.1) Immature Gran # 0.01 10^3/uL 10^3/uL (0.00-0.10) PT INR APTT VBG Lactic Acid Sodium 139 mEq/L mEq/L (134-144) Potassium 3.3 mEq/L L mEq/L (3.5-5.2) Chloride 95 mEq/L L mEq/L (97-110) Carbon Dioxide 30 mEq/l mEq/l (22-31) Anion Gap 14 mEq/L mEq/L (8-16) BUN 9 mg/dL mg/dL (7-23) Creatinine 0.5 mg/dL L mg/dL (0.6-1.0) Estimated GFR > 60 Glucose 85 mg/dL mg/dL (70-100) Calcium 8.4 mg/dL L mg/dL (8.5-10.4) Total Bilirubin 1.8 mg/dL H mg/dL (0.1-1.4) Conjugated Bilirubin 1.0 mg/dL H mg/dL (0.0-0.5) Unconjugated Bilirubin 0.8 mg/dL mg/dL (0.0-1.1) AST 359 IU/L H IU/L (14-46) ALT 143 IU/L H IU/L (9-52) Alkaline Phosphatase 411 IU/L H IU/L (38-126) Troponin I < 0.012 ng/mL ng/mL (0.000-0.034) Total Protein 6.9 g/dL g/dL (6.3-8.2) Albumin 3.6 g/dL g/dL (3.5-5.0) Lipase 123 IU/L IU/L (23-300) Beta HCG, Qual Medications Given: Discontinued Medications Albuterol/Ipratropium (Duoneb) 3 ml IH EDNOW ONE Stop: 11/30/16 19:21 Last Admin: 11/30/16 19:37 Dose: 3 ml Sodium Chloride (Ns) 1,000 mls @ 0 mls/hr IV EDNOW ONE; Wide Open PRN Reason: Protocol Stop: 11/30/16 19:20 Last Admin: 11/30/16 19:38 Dose: 1,000 mls Ondansetron HCl (Zofran) 4 mg IVP EDNOW ONE Stop: 11/30/16 19:20 Last Admin: 11/30/16 19:38 Dose: 4 mg Departure - Departure Disposition: Home, Routine, Self-Care Clinical Impression: Active asthma Condition: Good Instructions: Asthma (ED), Wheezing (ED), Bronchospasm (ED) Additional Instructions: 1. Return emergency room if you have any worsening symptoms questions or concerns Referrals: GIGI GONZALEZ,. [Primary Care Provider] - As per Instructions Prescriptions: Albuterol [Proventil Inhaler HFA (*)] 1 - 2 puffs IH Q4H #1 mdi predniSONE 60 mg PO DAILY #15 tab
[2016-11-30] MEDS ORDERED: NS 1,000 ML IV ONE (19:19)
[2016-11-30] MEDS ORDERED: ONDANSETRON 4 MG/2 ML VIAL IVP ONE (19:19)
[2016-11-30] MEDS ORDERED: IPRATROPIUM/ALBUTEROL 3 ML DEYVIAL IH ONE ×2 (19:20→20:44)
[2016-11-30 19:21] VITALS: TEMP 98.8; O2SAT 85
--- NOTE | 2016-11-30 19:37 | CPEKG ---
Heart Rate: 82 RR Interval: 732 P-R Interval: 148 QRSD Interval: 78 QT Interval: 400 QTC Interval: 468 P [place]: 55 QRS [place]: -59 T Wave [place]: 17 EKG Severity - ABNORMAL ECG - EKG Impression: SINUS RHYTHM EKG Impression: LEFT ANTERIOR FASCICULAR BLOCK Electronically Signed By: Wil Hough 05-Dec-2016 07:40:27
[2016-11-30 19:55] LABS: % IMMATURE GRANULYOCYTES 0.3 % (0.0-1.1); ABSOLUTE IMMATURE GRANULOCYTES 0.01 10^3/uL (0.00-0.10); ADD DIFF? NO; ADD MORPH? NO; ADD SCAN? NO; ATYPICAL LYMPHOCYTE FLAG 0 (0-99); FRAGMENT RBC FLAG 0 (0-99); HEMOGLOBIN 16.2 g/dL (12.6-16.3); LEFT SHIFT FLG 0 (0-99); LIPEMIA HEMOLYSIS FLAG 90 (0-99); MEAN CELL HEMOGLOBIN 33.8 pg (27.9-34.1); MEAN CELL HEMOGLOBIN CONCENTR. 35.2 g/dL (32.4-36.7); MEAN PLATELET VOLUME 10.3 fL (8.7-11.7); PLATELET CLUMPS FLAG 0 (0-99); PLATELET COUNT 227 10^3/uL (150-400); RED BLOOD CELL COUNT 4.79 10^6/uL (4.18-5.33); RED CELL DISTRIBUTION WIDTH 13.4 % (11.5-15.2)
[2016-11-30 20:05] LABS: INR 1.08 (0.83-1.16); PROTIME(PATIENT) 13.7 SEC (12.0-15.0)
[2016-11-30 20:06] LABS: APTT 27.4 SEC (23.0-38.0)
[2016-11-30 20:09] LABS: ALANINE AMINOTRANSFERASE 143 IU/L (9-52); ALBUMIN 3.6 g/dL (3.5-5.0); ALKALINE PHOSPHATASE 411 IU/L (38-126); ANION GAP 14 mEq/L (8-16); ASPARTATE AMINOTRANSFERASE 359 IU/L (14-46); BILIRUBIN,TOTAL 1.8 mg/dL (0.1-1.4); BILIRUBIN-UNCONJUGATED 0.8 mg/dL (0.0-1.1); CALCIUM 8.4 mg/dL (8.5-10.4); CARBON DIOXIDE 30 mEq/l (22-31); CHLORIDE 95 mEq/L (97-110); CREATININE 0.5 mg/dL (0.6-1.0); GLOMERULAR FILTRATION RATE > 60; GLUCOSE 85 mg/dL (70-100); POTASSIUM 3.3 mEq/L (3.5-5.2); SODIUM 139 mEq/L (134-144); TOTAL PROTEIN 6.9 g/dL (6.3-8.2)
[2016-11-30 20:20] LABS: TROPONIN I < 0.012 ng/mL (0.000-0.034)
[2016-11-30] MEDS ORDERED: ALBUTEROL 3 ML DEYVIAL ONE (20:44)
[2016-11-30] MEDS ORDERED: predniSONE 20 MG TAB PO ONE (20:44)
[2016-11-30] MEDS ORDERED: predniSONE 20 MG TAB ONE (20:44)
[2016-11-30 21:48] VITALS: BP 120/75; PULSE 95; RESP 15
== END 2016-11-30 22:06 | disposition home or self-care (01) ==
LOC: CED 19:07
DX: J45.909 Unspecified asthma, uncomplicated (principal); E86.9 Volume depletion, unspecified; Z87.891 Personal history of nicotine dependence
CPT/HCPCS: 71020-PO; 80048-PO; 80076-PO; 83605-PO; 83690-PO; 84484-PO; 84703-PO; 85025-PO; 85610-PO; 85730-PO; 96374; J2405

== ENCOUNTER 2017-02-07 20:37 | Inpatient (IN) | payer MEDICAID ==
[2017-02-07] MEDS ORDERED: ONDANSETRON 4 MG/2 ML VIAL IVP ONE (20:52)
[2017-02-07] MEDS ORDERED: LIDOCAINE 1% 100 MG in NS 100 ML IV ONE (20:52)
[2017-02-07] MEDS ORDERED: NS 1,000 ML IV ONE (20:52)
--- NOTE | 2017-02-07 20:55 | EDPHY ---
H & P Stated Complaint: RUQ pain, Hx ETOH abuse, Binge drinking 14 days ago. Time Seen by Provider: 02/07/17 20:49 HPI/ROS: CHIEF COMPLAINT: Epigastric pain HISTORY OF PRESENT ILLNESS: Patient is a 37-year-old female with a history of alcohol abuse as well as chronic bronchitis on 2 L of oxygen and cholecystectomy comes to the emergency department complaining of right upper quadrant/epigastric pain for the last 4 days. She has also had vomiting nonbloody. No diarrhea. No fever. No rash. No trauma. She states that she had been sober for a year but fell off the wagon about 2 weeks ago. She has had pancreatitis in the past. She also states that her urine is dark. No chest pain or shortness of breath. REVIEW OF SYSTEMS: Constitutional: denies: chills, fever, recent illness, recent injury EENTM: denies: blurred vision, double vision, nose congestion Respiratory: denies: cough, shortness of breath Cardiac: denies: chest pain, irregular heart rate, lightheadedness, palpitations Gastrointestinal/Abdominal: denies: abdominal pain, diarrhea, nausea, vomiting, blood streaked stools Genitourinary: denies: dysuria, frequency, hematuria, pain Musculoskeletal: denies: joint pain, muscle pain Skin: denies: lesions, rash, jaundice, bruising Neurological: denies: headache, numbness, paresthesia, tingling, dizziness, weakness Hematologic/Lymphatic: denies: blood clots, easy bleeding, easy bruising Immunologic/allergic: denies: HIV/AIDS, transplant EXAM: GENERAL: no acute distress. HEAD: Atraumatic, normocephalic. EYES: Pupils equal round and reactive to light, extraocular movements intact, sclera anicteric, conjunctiva are normal. ENT: TMs normal, nares patent, oropharynx clear without exudates. Moist mucous membranes. NECK: Normal range of motion, supple without lymphadenopathy or JVD. LUNGS: Breath sounds clear to auscultation bilaterally and equal. No wheezes rales or rhonchi. HEART: Regular rate and rhythm without murmurs, rubs or gallops. ABDOMEN: Firm enlarged liver, mildly tender, no rebound or guarding. BACK: No CVA tenderness, no spinal tenderness, step-offs or deformities EXTREMITIES: Normal range of motion, no pitting or edema. No clubbing or cyanosis. NEUROLOGICAL: Cranial nerves II through XII grossly intact. Normal speech, normal gait. 5/5 strength, normal movement in all extremities, normal sensation PSYCH: Normal mood, normal affect. SKIN: Slightly jaundice, Warm, dry, normal turgor, no visible rashes or lesions. Source: Patient, Old records - Personal History LMP (Females 10-55): Irregular Current Tetanus/Diphtheria Vaccine: Yes Current Tetanus Diphtheria and Acellular Pertussis (TDAP): Yes Tetanus Vaccine Date: 2011 - Medical/Surgical History Hx Asthma: Yes Hx Chronic Respiratory Disease: Yes Hx Diabetes: No Hx Cardiac Disease: No Hx Renal Disease: No Hx Cirrhosis: No Hx Alcoholism: Yes Hx HIV/AIDS: No Hx Splenectomy or Spleen Trauma: No Other PMH: Cholecystectomy, ETOH; past HX of Drug Abuse. Surg-tubal, ASTHMA, CPOD-uses 2L NC cont. - Family History Significant Family History: No pertinent family hx - Social History Smoking Status: Former smoker Alcohol Use: Occasionally Constitutional: Initial Vital Signs Temperature (C) 36.6 C 02/07/17 20:49 Heart Rate 94 02/07/17 20:49 Respiratory Rate 18 02/07/17 20:49 Blood Pressure 121/82 H 02/07/17 20:49 O2 Sat (%) 90 L 02/07/17 20:49 O2 Delivery Mode Nasal Cannula O2 (L/minute) 2 Allergies/Adverse Reactions: No Known Allergies Allergy (Verified 02/07/17 20:51) Home Medications: Medication Instructions Recorded Albuterol [Proventil Inhaler HFA 1 - 2 puffs IH DAILY PRN 02/08/17 (*)] Albuterol [Proventil Neb] 3 ml IH QID PRN 02/08/17 Fluticasone/Salmeter 250/50Mcg 1 puffs IH BID 02/08/17 [Advair 250/50 (*)] Ibuprofen [Motrin (*)] 200 mg PO DAILY PRN 02/08/17 Medical Decision Making - Diagnostics EKG Interpretation: An EKG obtained and was read and documented in trace view. Please see trace view for full reading and report. Sinus rhythm, nonspecific T-wave abnormality similar to July this year Imaging: Discussed imaging studies w/ academic associate Radiologist ED Course/Re-evaluation: 10:13 p.m. the patient's repeat potassium is worse. Will give her p. o. and IV potassium and continue to hydrate and provided anti nausea and pain medication. CT is pending. I discussed the case with Dr. Nieto who will admit to the PCU. Suspect the patient has cirrhosis with history of alcohol abuse and now hypokalemia secondary to vomiting. Differential Diagnosis: Partial list of the Differential diagnosis considered include but were not limited to; pancreatitis, biliary stenosis, hepatitis, cirrhosis, electrolyte abnormality and although unlikely based on the history and physical exam, I also considered ischemia, obstruction, abscess. Critical Care Time: Critical care time spent by me, Dr. Don exclusive with this patient was 45 minutes, exclusive of the PA time exclusive of procedures. The organ system that was at risk was GI and I gave IV fluids, potassium, medication, consultation and admission to prevent worsening of the patient's condition - Data Points Laboratory Results: Laboratory Results 02/07/17 20:50 02/07/17 21:30 02/07/17 07:35 Potassium 2.8 mEq/L L mEq/L (3.5-5.2) Phosphorus 3.2 mg/dL mg/dL (2.5-4.5) Magnesium 1.6 mg/dL mg/dL (1.6-2.3) Medications Given: Albuterol (Proventil Neb) 3 ml IH Q2HRS PRN PRN Reason: Short of Breath/Dyspnea Stop: 08/07/17 04:06 Last Admin: 02/08/17 04:27 Dose: 3 ml Enoxaparin Sodium (Lovenox) 40 mg SC DAILY [facility] Stop: 08/07/17 08:59 Last Admin: 02/08/17 10:56 Dose: 40 mg Folic Acid (Folic Acid) 1 mg PO DAILY [facility] Stop: 08/07/17 08:59 Last Admin: 02/08/17 10:56 Dose: Not Given Hydromorphone/Sodium Chloride (Hydromorphone) 0.2 - 0.4 mg IVP Q4HRS PRN PRN Reason: Pain, Severe Unable to Take PO Stop: 02/17/17 22:21 Last Admin: 02/08/17 16:42 Dose: 0.4 mg Potassium Chloride/Sodium Chloride (Ns W/ 20 Kcl/L) 1,000 mls @ 125 mls/hr IV CONT [facility] Stop: 08/06/17 22:29 Last Admin: 02/08/17 13:26 Dose: 1,000 mls Lorazepam (Ativan) 1 mg PO Q4HRS PRN PRN Reason: Agitation if able to take PO Stop: 08/06/17 22:25 Last Admin: 02/08/17 10:56 Dose: 1 mg Lorazepam (Ativan Injection) 0.5 - 1 mg IVP Q6HRS PRN PRN Reason: Anxiety, Unable to Take PO Stop: 08/07/17 05:10 Last Admin: 02/08/17 05:40 Dose: 1 mg Multivitamins (Tab-A-Chan) 1 each PO DAILY [facility] Stop: 08/07/17 08:59 Last Admin: 02/08/17 11:17 Dose: Not Given Ondansetron HCl (Zofran) 4 mg IVP Q4HRS PRN PRN Reason: Nausea/Vomiting, Can't Take PO Stop: 08/06/17 22:21 Last Admin: 02/08/17 03:53 Dose: 4 mg Pantoprazole Sodium (Protonix) 40 mg IVP BID [facility] Stop: 08/07/17 08:59 Last Admin: 02/08/17 08:44 Dose: 40 mg Thiamine HCl (Vitamin B-1) 100 mg PO DAILY [facility] Stop: 08/07/17 01:14 Last Admin: 02/08/17 11:17 Dose: Not Given Discontinued Medications Hydromorphone HCl (Dilaudid) 1 mg IVP EDNOW ONE Stop: 02/07/17 22:28 Last Admin: 02/07/17 22:34 Dose: 1 mg Sodium Chloride (Ns) 1,000 mls @ 0 mls/hr IV EDNOW ONE; Wide Open PRN Reason: Protocol Stop: 02/07/17 20:53 Last Admin: 02/07/17 21:04 Dose: 1,000 mls Lidocaine HCl 100 mg/ Sodium (Chloride) 110 mls @ 600 mls/hr IV EDNOW ONE Stop: 02/07/17 21:02 Last Admin: 02/07/17 21:05 Dose: 110 mls Potassium Chloride (Potassium Cl 10 Meq (Premix)) 100 mls @ 100 mls/hr IV EDNOW ONE Stop: 02/07/17 22:49 Last Admin: 02/07/17 22:00 Dose: 100 mls Magnesium Sulfate/Dextrose (Magnesium Sulf 1 Gm (Premix)) 100 mls @ 100 mls/hr IV EDNOW ONE Stop: 02/07/17 23:05 Last Admin: 02/07/17 22:15 Dose: 100 mls Magnesium Sulfate/Dextrose (Magnesium Sulf 1 Gm (Premix)) 100 mls @ 100 mls/hr IV ONCE ONE Stop: 02/08/17 04:31 Last Admin: 02/08/17 03:45 Dose: 100 mls Potassium Chloride (Potassium Cl 10 Meq (Premix)) 100 mls @ 100 mls/hr IV Q1H [facility] Stop: 02/08/17 07:59 Last Admin: 02/08/17 11:28 Dose: Not Given Calcium Gluconate (Calcium Gluconate 1 Gm (Premix)) 50 mls @ 100 mls/hr IV ONCE ONE Stop: 02/08/17 05:34 Last Admin: 02/08/17 05:40 Dose: 50 mls Ciprofloxacin/Dextrose (Cipro 400 Mg (Premix)) 200 mls @ 200 mls/hr IV Q12HRS [facility] PRN Reason: Protocol Stop: 03/10/17 08:59 Last Admin: 02/08/17 08:40 Dose: 200 mls Metronidazole/Sodium Chloride (Flagyl 500 Mg (Premix)) 100 mls @ 100 mls/hr IV Q8HRS [facility] PRN Reason: Protocol Stop: 03/10/17 05:59 Last Admin: 02/08/17 06:16 Dose: 100 mls Calcium Gluconate (Calcium Gluconate 1 Gm (Premix)) 50 mls @ 100 mls/hr IV ONCE ONE Stop: 02/08/17 10:31 Last Admin: 02/08/17 10:55 Dose: 50 mls Magnesium Sulfate/Dextrose (Magnesium Sulf 1 Gm (Premix)) 100 mls @ 100 mls/hr IV ONCE ONE Stop: 02/08/17 11:30 Last Admin: 02/08/17 11:35 Dose: 100 mls Ketorolac Tromethamine (Toradol) 30 mg IVP EDNOW ONE Stop: 02/07/17 21:42 Last Admin: 02/07/17 22:01 Dose: 30 mg Ondansetron HCl (Zofran) 4 mg IVP EDNOW ONE Stop: 02/07/17 20:53 Last Admin: 02/07/17 21:05 Dose: 4 mg Potassium Chloride (Klor-Con) 40 meq PO EDNOW ONE Stop: 02/07/17 21:51 Last Admin: 02/07/17 22:05 Dose: Not Given Potassium Chloride (Potassium Chloride Oral Liquid) 40 meq PO EDNOW ONE Stop: 02/07/17 22:10 Last Admin: 02/07/17 22:15 Dose: 40 meq Potassium Chloride (Potassium Chloride Oral Liquid) 40 meq PO ONCE ONE PRN Reason: Protocol Stop: 02/08/17 03:31 Last Admin: 02/08/17 04:02 Dose: Not Given Departure - Departure Disposition: [facility] Acute Clinical Impression: Hypokalemia, Colitis Vomiting Qualifiers: Vomiting type: unspecified Vomiting Intractability: non-intractable Nausea presence: with nausea Qualified Code(s): R11.2 - Nausea with vomiting, unspecified Condition: Fair
--- NOTE | 2017-02-07 20:55 | EDPHY ---
H & P Stated Complaint: RUQ pain, Hx ETOH abuse, Binge drinking 14 days ago. Time Seen by Provider: 02/07/17 20:49 HPI/ROS: CHIEF COMPLAINT: Epigastric pain HISTORY OF PRESENT ILLNESS: Patient is a 37-year-old female with a history of alcohol abuse as well as chronic bronchitis on 2 L of oxygen and cholecystectomy comes to the emergency department complaining of right upper quadrant/epigastric pain for the last 4 days. She has also had vomiting nonbloody. No diarrhea. No fever. No rash. No trauma. She states that she had been sober for a year but fell off the wagon about 2 weeks ago. She has had pancreatitis in the past. She also states that her urine is dark. No chest pain or shortness of breath. REVIEW OF SYSTEMS: Constitutional: denies: chills, fever, recent illness, recent injury EENTM: denies: blurred vision, double vision, nose congestion Respiratory: denies: cough, shortness of breath Cardiac: denies: chest pain, irregular heart rate, lightheadedness, palpitations Gastrointestinal/Abdominal: denies: abdominal pain, diarrhea, nausea, vomiting, blood streaked stools Genitourinary: denies: dysuria, frequency, hematuria, pain Musculoskeletal: denies: joint pain, muscle pain Skin: denies: lesions, rash, jaundice, bruising Neurological: denies: headache, numbness, paresthesia, tingling, dizziness, weakness Hematologic/Lymphatic: denies: blood clots, easy bleeding, easy bruising Immunologic/allergic: denies: HIV/AIDS, transplant EXAM: GENERAL: no acute distress. HEAD: Atraumatic, normocephalic. EYES: Pupils equal round and reactive to light, extraocular movements intact, sclera anicteric, conjunctiva are normal. ENT: TMs normal, nares patent, oropharynx clear without exudates. Moist mucous membranes. NECK: Normal range of motion, supple without lymphadenopathy or JVD. LUNGS: Breath sounds clear to auscultation bilaterally and equal. No wheezes rales or rhonchi. HEART: Regular rate and rhythm without murmurs, rubs or gallops. ABDOMEN: Firm enlarged liver, mildly tender, no rebound or guarding. BACK: No CVA tenderness, no spinal tenderness, step-offs or deformities EXTREMITIES: Normal range of motion, no pitting or edema. No clubbing or cyanosis. NEUROLOGICAL: Cranial nerves II through XII grossly intact. Normal speech, normal gait. 5/5 strength, normal movement in all extremities, normal sensation PSYCH: Normal mood, normal affect. SKIN: Slightly jaundice, Warm, dry, normal turgor, no visible rashes or lesions. Source: Patient, Old records - Personal History LMP (Females 10-55): Irregular Current Tetanus/Diphtheria Vaccine: Yes Current Tetanus Diphtheria and Acellular Pertussis (TDAP): Yes Tetanus Vaccine Date: 2011 - Medical/Surgical History Hx Asthma: Yes Hx Chronic Respiratory Disease: Yes Hx Diabetes: No Hx Cardiac Disease: No Hx Renal Disease: No Hx Cirrhosis: No Hx Alcoholism: Yes Hx HIV/AIDS: No Hx Splenectomy or Spleen Trauma: No Other PMH: Cholecystectomy, ETOH; past HX of Drug Abuse. Surg-tubal, ASTHMA, CPOD-uses 2L NC cont. - Family History Significant Family History: No pertinent family hx - Social History Smoking Status: Former smoker Alcohol Use: Occasionally Constitutional: Initial Vital Signs Temperature (C) 36.6 C 02/07/17 20:49 Heart Rate 94 02/07/17 20:49 Respiratory Rate 18 02/07/17 20:49 Blood Pressure 121/82 H 02/07/17 20:49 O2 Sat (%) 90 L 02/07/17 20:49 O2 Delivery Mode Nasal Cannula O2 (L/minute) 2 Allergies/Adverse Reactions: No Known Allergies Allergy (Verified 02/07/17 20:51) Home Medications: Medication Instructions Recorded Albuterol [Proventil Inhaler HFA 1 - 2 puffs IH DAILY PRN 02/08/17 (*)] Albuterol [Proventil Neb] 3 ml IH QID PRN 02/08/17 Fluticasone/Salmeter 250/50Mcg 1 puffs IH BID 02/08/17 [Advair 250/50 (*)] Ibuprofen [Motrin (*)] 200 mg PO DAILY PRN 02/08/17 Medical Decision Making - Diagnostics EKG Interpretation: An EKG obtained and was read and documented in trace view. Please see trace view for full reading and report. Sinus rhythm, nonspecific T-wave abnormality similar to July this year Imaging: Discussed imaging studies w/ clinical education coordinator Radiologist ED Course/Re-evaluation: 10:13 p.m. the patient's repeat potassium is worse. Will give her p. o. and IV potassium and continue to hydrate and provided anti nausea and pain medication. CT is pending. I discussed the case with Dr. Nieto who will admit to the PCU. Suspect the patient has cirrhosis with history of alcohol abuse and now hypokalemia secondary to vomiting. Differential Diagnosis: Partial list of the Differential diagnosis considered include but were not limited to; pancreatitis, biliary stenosis, hepatitis, cirrhosis, electrolyte abnormality and although unlikely based on the history and physical exam, I also considered ischemia, obstruction, abscess. Critical Care Time: Critical care time spent by me, Dr. Don exclusive with this patient was 45 minutes, exclusive of the PA time exclusive of procedures. The organ system that was at risk was GI and I gave IV fluids, potassium, medication, consultation and admission to prevent worsening of the patient's condition - Data Points Laboratory Results: Laboratory Results 02/07/17 20:50 02/07/17 21:30 02/07/17 07:35 Potassium 2.8 mEq/L L mEq/L (3.5-5.2) Phosphorus 3.2 mg/dL mg/dL (2.5-4.5) Magnesium 1.6 mg/dL mg/dL (1.6-2.3) Medications Given: Albuterol (Proventil Neb) 3 ml IH Q2HRS PRN PRN Reason: Short of Breath/Dyspnea Stop: 08/07/17 04:06 Last Admin: 02/08/17 04:27 Dose: 3 ml Enoxaparin Sodium (Lovenox) 40 mg SC DAILY [facility] Stop: 08/07/17 08:59 Last Admin: 02/08/17 10:56 Dose: 40 mg Folic Acid (Folic Acid) 1 mg PO DAILY [facility] Stop: 08/07/17 08:59 Last Admin: 02/08/17 10:56 Dose: Not Given Hydromorphone/Sodium Chloride (Hydromorphone) 0.2 - 0.4 mg IVP Q4HRS PRN PRN Reason: Pain, Severe Unable to Take PO Stop: 02/17/17 22:21 Last Admin: 02/08/17 16:42 Dose: 0.4 mg Potassium Chloride/Sodium Chloride (Ns W/ 20 Kcl/L) 1,000 mls @ 125 mls/hr IV CONT [facility] Stop: 08/06/17 22:29 Last Admin: 02/08/17 13:26 Dose: 1,000 mls Lorazepam (Ativan) 1 mg PO Q4HRS PRN PRN Reason: Agitation if able to take PO Stop: 08/06/17 22:25 Last Admin: 02/08/17 10:56 Dose: 1 mg Lorazepam (Ativan Injection) 0.5 - 1 mg IVP Q6HRS PRN PRN Reason: Anxiety, Unable to Take PO Stop: 08/07/17 05:10 Last Admin: 02/08/17 05:40 Dose: 1 mg Multivitamins (Tab-A-Chan) 1 each PO DAILY [facility] Stop: 08/07/17 08:59 Last Admin: 02/08/17 11:17 Dose: Not Given Ondansetron HCl (Zofran) 4 mg IVP Q4HRS PRN PRN Reason: Nausea/Vomiting, Can't Take PO Stop: 08/06/17 22:21 Last Admin: 02/08/17 03:53 Dose: 4 mg Pantoprazole Sodium (Protonix) 40 mg IVP BID [facility] Stop: 08/07/17 08:59 Last Admin: 02/08/17 08:44 Dose: 40 mg Thiamine HCl (Vitamin B-1) 100 mg PO DAILY [facility] Stop: 08/07/17 01:14 Last Admin: 02/08/17 11:17 Dose: Not Given Discontinued Medications Hydromorphone HCl (Dilaudid) 1 mg IVP EDNOW ONE Stop: 02/07/17 22:28 Last Admin: 02/07/17 22:34 Dose: 1 mg Sodium Chloride (Ns) 1,000 mls @ 0 mls/hr IV EDNOW ONE; Wide Open PRN Reason: Protocol Stop: 02/07/17 20:53 Last Admin: 02/07/17 21:04 Dose: 1,000 mls Lidocaine HCl 100 mg/ Sodium (Chloride) 110 mls @ 600 mls/hr IV EDNOW ONE Stop: 02/07/17 21:02 Last Admin: 02/07/17 21:05 Dose: 110 mls Potassium Chloride (Potassium Cl 10 Meq (Premix)) 100 mls @ 100 mls/hr IV EDNOW ONE Stop: 02/07/17 22:49 Last Admin: 02/07/17 22:00 Dose: 100 mls Magnesium Sulfate/Dextrose (Magnesium Sulf 1 Gm (Premix)) 100 mls @ 100 mls/hr IV EDNOW ONE Stop: 02/07/17 23:05 Last Admin: 02/07/17 22:15 Dose: 100 mls Magnesium Sulfate/Dextrose (Magnesium Sulf 1 Gm (Premix)) 100 mls @ 100 mls/hr IV ONCE ONE Stop: 02/08/17 04:31 Last Admin: 02/08/17 03:45 Dose: 100 mls Potassium Chloride (Potassium Cl 10 Meq (Premix)) 100 mls @ 100 mls/hr IV Q1H [facility] Stop: 02/08/17 07:59 Last Admin: 02/08/17 11:28 Dose: Not Given Calcium Gluconate (Calcium Gluconate 1 Gm (Premix)) 50 mls @ 100 mls/hr IV ONCE ONE Stop: 02/08/17 05:34 Last Admin: 02/08/17 05:40 Dose: 50 mls Ciprofloxacin/Dextrose (Cipro 400 Mg (Premix)) 200 mls @ 200 mls/hr IV Q12HRS [facility] PRN Reason: Protocol Stop: 03/10/17 08:59 Last Admin: 02/08/17 08:40 Dose: 200 mls Metronidazole/Sodium Chloride (Flagyl 500 Mg (Premix)) 100 mls @ 100 mls/hr IV Q8HRS [facility] PRN Reason: Protocol Stop: 03/10/17 05:59 Last Admin: 02/08/17 06:16 Dose: 100 mls Calcium Gluconate (Calcium Gluconate 1 Gm (Premix)) 50 mls @ 100 mls/hr IV ONCE ONE Stop: 02/08/17 10:31 Last Admin: 02/08/17 10:55 Dose: 50 mls Magnesium Sulfate/Dextrose (Magnesium Sulf 1 Gm (Premix)) 100 mls @ 100 mls/hr IV ONCE ONE Stop: 02/08/17 11:30 Last Admin: 02/08/17 11:35 Dose: 100 mls Ketorolac Tromethamine (Toradol) 30 mg IVP EDNOW ONE Stop: 02/07/17 21:42 Last Admin: 02/07/17 22:01 Dose: 30 mg Ondansetron HCl (Zofran) 4 mg IVP EDNOW ONE Stop: 02/07/17 20:53 Last Admin: 02/07/17 21:05 Dose: 4 mg Potassium Chloride (Klor-Con) 40 meq PO EDNOW ONE Stop: 02/07/17 21:51 Last Admin: 02/07/17 22:05 Dose: Not Given Potassium Chloride (Potassium Chloride Oral Liquid) 40 meq PO EDNOW ONE Stop: 02/07/17 22:10 Last Admin: 02/07/17 22:15 Dose: 40 meq Potassium Chloride (Potassium Chloride Oral Liquid) 40 meq PO ONCE ONE PRN Reason: Protocol Stop: 02/08/17 03:31 Last Admin: 02/08/17 04:02 Dose: Not Given Departure - Departure Disposition: [facility] Acute Clinical Impression: Hypokalemia, Colitis Vomiting Qualifiers: Vomiting type: unspecified Vomiting Intractability: non-intractable Nausea presence: with nausea Qualified Code(s): R11.2 - Nausea with vomiting, unspecified Condition: Fair
--- NOTE | 2017-02-07 20:55 | EDPHY ---
H & P Stated Complaint: RUQ pain, Hx ETOH abuse, Binge drinking 14 days ago. Time Seen by Provider: 02/07/17 20:49 HPI/ROS: CHIEF COMPLAINT: Epigastric pain HISTORY OF PRESENT ILLNESS: Patient is a 37-year-old female with a history of alcohol abuse as well as chronic bronchitis on 2 L of oxygen and cholecystectomy comes to the emergency department complaining of right upper quadrant/epigastric pain for the last 4 days. She has also had vomiting nonbloody. No diarrhea. No fever. No rash. No trauma. She states that she had been sober for a year but fell off the wagon about 2 weeks ago. She has had pancreatitis in the past. She also states that her urine is dark. No chest pain or shortness of breath. REVIEW OF SYSTEMS: Constitutional: denies: chills, fever, recent illness, recent injury EENTM: denies: blurred vision, double vision, nose congestion Respiratory: denies: cough, shortness of breath Cardiac: denies: chest pain, irregular heart rate, lightheadedness, palpitations Gastrointestinal/Abdominal: denies: abdominal pain, diarrhea, nausea, vomiting, blood streaked stools Genitourinary: denies: dysuria, frequency, hematuria, pain Musculoskeletal: denies: joint pain, muscle pain Skin: denies: lesions, rash, jaundice, bruising Neurological: denies: headache, numbness, paresthesia, tingling, dizziness, weakness Hematologic/Lymphatic: denies: blood clots, easy bleeding, easy bruising Immunologic/allergic: denies: HIV/AIDS, transplant EXAM: GENERAL: no acute distress. HEAD: Atraumatic, normocephalic. EYES: Pupils equal round and reactive to light, extraocular movements intact, sclera anicteric, conjunctiva are normal. ENT: TMs normal, nares patent, oropharynx clear without exudates. Moist mucous membranes. NECK: Normal range of motion, supple without lymphadenopathy or JVD. LUNGS: Breath sounds clear to auscultation bilaterally and equal. No wheezes rales or rhonchi. HEART: Regular rate and rhythm without murmurs, rubs or gallops. ABDOMEN: Firm enlarged liver, mildly tender, no rebound or guarding. BACK: No CVA tenderness, no spinal tenderness, step-offs or deformities EXTREMITIES: Normal range of motion, no pitting or edema. No clubbing or cyanosis. NEUROLOGICAL: Cranial nerves II through XII grossly intact. Normal speech, normal gait. 5/5 strength, normal movement in all extremities, normal sensation PSYCH: Normal mood, normal affect. SKIN: Slightly jaundice, Warm, dry, normal turgor, no visible rashes or lesions. Source: Patient, Old records - Personal History LMP (Females 10-55): Irregular Current Tetanus/Diphtheria Vaccine: Yes Current Tetanus Diphtheria and Acellular Pertussis (TDAP): Yes Tetanus Vaccine Date: 2011 - Medical/Surgical History Hx Asthma: Yes Hx Chronic Respiratory Disease: Yes Hx Diabetes: No Hx Cardiac Disease: No Hx Renal Disease: No Hx Cirrhosis: No Hx Alcoholism: Yes Hx HIV/AIDS: No Hx Splenectomy or Spleen Trauma: No Other PMH: Cholecystectomy, ETOH; past HX of Drug Abuse. Surg-tubal, ASTHMA, CPOD-uses 2L NC cont. - Family History Significant Family History: No pertinent family hx - Social History Smoking Status: Former smoker Alcohol Use: Occasionally Constitutional: Initial Vital Signs Temperature (C) 36.6 C 02/07/17 20:49 Heart Rate 94 02/07/17 20:49 Respiratory Rate 18 02/07/17 20:49 Blood Pressure 121/82 H 02/07/17 20:49 O2 Sat (%) 90 L 02/07/17 20:49 O2 Delivery Mode Nasal Cannula O2 (L/minute) 2 Allergies/Adverse Reactions: No Known Allergies Allergy (Verified 02/07/17 20:51) Home Medications: Medication Instructions Recorded Albuterol [Proventil Inhaler HFA 1 - 2 puffs IH DAILY PRN 02/08/17 (*)] Albuterol [Proventil Neb] 3 ml IH QID PRN 02/08/17 Fluticasone/Salmeter 250/50Mcg 1 puffs IH BID 02/08/17 [Advair 250/50 (*)] Ibuprofen [Motrin (*)] 200 mg PO DAILY PRN 02/08/17 Medical Decision Making - Diagnostics EKG Interpretation: An EKG obtained and was read and documented in trace view. Please see trace view for full reading and report. Sinus rhythm, nonspecific T-wave abnormality similar to July this year Imaging: Discussed imaging studies w/ call center dispatcher Radiologist ED Course/Re-evaluation: 10:13 p.m. the patient's repeat potassium is worse. Will give her p. o. and IV potassium and continue to hydrate and provided anti nausea and pain medication. CT is pending. I discussed the case with Dr. Nieto who will admit to the PCU. Suspect the patient has cirrhosis with history of alcohol abuse and now hypokalemia secondary to vomiting. Differential Diagnosis: Partial list of the Differential diagnosis considered include but were not limited to; pancreatitis, biliary stenosis, hepatitis, cirrhosis, electrolyte abnormality and although unlikely based on the history and physical exam, I also considered ischemia, obstruction, abscess. Critical Care Time: Critical care time spent by me, Dr. Don exclusive with this patient was 45 minutes, exclusive of the PA time exclusive of procedures. The organ system that was at risk was GI and I gave IV fluids, potassium, medication, consultation and admission to prevent worsening of the patient's condition - Data Points Laboratory Results: Laboratory Results 02/07/17 20:50 02/07/17 21:30 02/07/17 07:35 Potassium 2.8 mEq/L L mEq/L (3.5-5.2) Phosphorus 3.2 mg/dL mg/dL (2.5-4.5) Magnesium 1.6 mg/dL mg/dL (1.6-2.3) Medications Given: Albuterol (Proventil Neb) 3 ml IH Q2HRS PRN PRN Reason: Short of Breath/Dyspnea Stop: 08/07/17 04:06 Last Admin: 02/08/17 04:27 Dose: 3 ml Enoxaparin Sodium (Lovenox) 40 mg SC DAILY [facility] Stop: 08/07/17 08:59 Last Admin: 02/08/17 10:56 Dose: 40 mg Folic Acid (Folic Acid) 1 mg PO DAILY AUDI Stop: 08/07/17 08:59 Last Admin: 02/08/17 10:56 Dose: Not Given Hydromorphone/Sodium Chloride (Hydromorphone) 0.2 - 0.4 mg IVP Q4HRS PRN PRN Reason: Pain, Severe Unable to Take PO Stop: 02/17/17 22:21 Last Admin: 02/08/17 16:42 Dose: 0.4 mg Potassium Chloride/Sodium Chloride (Ns W/ 20 Kcl/L) 1,000 mls @ 125 mls/hr IV CONT [facility] Stop: 08/06/17 22:29 Last Admin: 02/08/17 13:26 Dose: 1,000 mls Lorazepam (Ativan) 1 mg PO Q4HRS PRN PRN Reason: Agitation if able to take PO Stop: 08/06/17 22:25 Last Admin: 02/08/17 10:56 Dose: 1 mg Lorazepam (Ativan Injection) 0.5 - 1 mg IVP Q6HRS PRN PRN Reason: Anxiety, Unable to Take PO Stop: 08/07/17 05:10 Last Admin: 02/08/17 05:40 Dose: 1 mg Multivitamins (Tab-A-Chan) 1 each PO DAILY AUDI Stop: 08/07/17 08:59 Last Admin: 02/08/17 11:17 Dose: Not Given Ondansetron HCl (Zofran) 4 mg IVP Q4HRS PRN PRN Reason: Nausea/Vomiting, Can't Take PO Stop: 08/06/17 22:21 Last Admin: 02/08/17 03:53 Dose: 4 mg Pantoprazole Sodium (Protonix) 40 mg IVP BID AUDI Stop: 08/07/17 08:59 Last Admin: 02/08/17 08:44 Dose: 40 mg Thiamine HCl (Vitamin B-1) 100 mg PO DAILY [facility] Stop: 08/07/17 01:14 Last Admin: 02/08/17 11:17 Dose: Not Given Discontinued Medications Hydromorphone HCl (Dilaudid) 1 mg IVP EDNOW ONE Stop: 02/07/17 22:28 Last Admin: 02/07/17 22:34 Dose: 1 mg Sodium Chloride (Ns) 1,000 mls @ 0 mls/hr IV EDNOW ONE; Wide Open PRN Reason: Protocol Stop: 02/07/17 20:53 Last Admin: 02/07/17 21:04 Dose: 1,000 mls Lidocaine HCl 100 mg/ Sodium (Chloride) 110 mls @ 600 mls/hr IV EDNOW ONE Stop: 02/07/17 21:02 Last Admin: 02/07/17 21:05 Dose: 110 mls Potassium Chloride (Potassium Cl 10 Meq (Premix)) 100 mls @ 100 mls/hr IV EDNOW ONE Stop: 02/07/17 22:49 Last Admin: 02/07/17 22:00 Dose: 100 mls Magnesium Sulfate/Dextrose (Magnesium Sulf 1 Gm (Premix)) 100 mls @ 100 mls/hr IV EDNOW ONE Stop: 02/07/17 23:05 Last Admin: 02/07/17 22:15 Dose: 100 mls Magnesium Sulfate/Dextrose (Magnesium Sulf 1 Gm (Premix)) 100 mls @ 100 mls/hr IV ONCE ONE Stop: 02/08/17 04:31 Last Admin: 02/08/17 03:45 Dose: 100 mls Potassium Chloride (Potassium Cl 10 Meq (Premix)) 100 mls @ 100 mls/hr IV Q1H [facility] Stop: 02/08/17 07:59 Last Admin: 02/08/17 11:28 Dose: Not Given Calcium Gluconate (Calcium Gluconate 1 Gm (Premix)) 50 mls @ 100 mls/hr IV ONCE ONE Stop: 02/08/17 05:34 Last Admin: 02/08/17 05:40 Dose: 50 mls Ciprofloxacin/Dextrose (Cipro 400 Mg (Premix)) 200 mls @ 200 mls/hr IV Q12HRS [facility] PRN Reason: Protocol Stop: 03/10/17 08:59 Last Admin: 02/08/17 08:40 Dose: 200 mls Metronidazole/Sodium Chloride (Flagyl 500 Mg (Premix)) 100 mls @ 100 mls/hr IV Q8HRS [facility] PRN Reason: Protocol Stop: 03/10/17 05:59 Last Admin: 02/08/17 06:16 Dose: 100 mls Calcium Gluconate (Calcium Gluconate 1 Gm (Premix)) 50 mls @ 100 mls/hr IV ONCE ONE Stop: 02/08/17 10:31 Last Admin: 02/08/17 10:55 Dose: 50 mls Magnesium Sulfate/Dextrose (Magnesium Sulf 1 Gm (Premix)) 100 mls @ 100 mls/hr IV ONCE ONE Stop: 02/08/17 11:30 Last Admin: 02/08/17 11:35 Dose: 100 mls Ketorolac Tromethamine (Toradol) 30 mg IVP EDNOW ONE Stop: 02/07/17 21:42 Last Admin: 02/07/17 22:01 Dose: 30 mg Ondansetron HCl (Zofran) 4 mg IVP EDNOW ONE Stop: 02/07/17 20:53 Last Admin: 02/07/17 21:05 Dose: 4 mg Potassium Chloride (Klor-Con) 40 meq PO EDNOW ONE Stop: 02/07/17 21:51 Last Admin: 02/07/17 22:05 Dose: Not Given Potassium Chloride (Potassium Chloride Oral Liquid) 40 meq PO EDNOW ONE Stop: 02/07/17 22:10 Last Admin: 02/07/17 22:15 Dose: 40 meq Potassium Chloride (Potassium Chloride Oral Liquid) 40 meq PO ONCE ONE PRN Reason: Protocol Stop: 02/08/17 03:31 Last Admin: 02/08/17 04:02 Dose: Not Given Departure - Departure Disposition: [facility] Acute Clinical Impression: Hypokalemia, Colitis Vomiting Qualifiers: Vomiting type: unspecified Vomiting Intractability: non-intractable Nausea presence: with nausea Qualified Code(s): R11.2 - Nausea with vomiting, unspecified Condition: Fair
[2017-02-07] MEDS ORDERED: IOPAMIDOL (ISOVUE-300) 100 ML BTL ONE (20:58)
[2017-02-07 21:01] LABS: PLATELET COUNT 228 10^3/uL (150-400)
[2017-02-07 21:13] LABS: INR 1.15 (0.83-1.16); PROTIME(PATIENT) 14.4 SEC (12.0-15.0)
--- NOTE | 2017-02-07 21:37 | CPEKG ---
Heart Rate: 74 RR Interval: 811 P-R Interval: 156 QRSD Interval: 90 QT Interval: 428 QTC Interval: 475 P [place]: 50 QRS [place]: -34 T Wave [place]: -4 EKG Severity - ABNORMAL ECG - EKG Impression: SINUS RHYTHM EKG Impression: LEFT AXIS DEVIATION EKG Impression: NONSPECIFIC T ABNORMALITIES, ANTERIOR LEADS Electronically Signed By: Angel Don 07-Feb-2017 21:42:46
[2017-02-07] MEDS ORDERED: KETOROLAC 30 MG/1 ML SDV IVP ONE (21:41)
[2017-02-07] MEDS ORDERED: POTASSIUM Cl (KCl) 100 ML IV ONE (21:50)
[2017-02-07] MEDS: POTASSIUM CL 10 MEQ TAB PO ONE ×2 (22:01→22:05)
[2017-02-07] MEDS ORDERED: MAGNESIUM SULF 1 GM/DEXTROSE 100 ML IV ONE (22:06)
[2017-02-07] MEDS ORDERED: POTASSIUM CL 20 MEQ/15 ML UDCUP PO ONE (22:09)
[2017-02-07] MEDS ORDERED: LORazepam 0.5 MG TAB PO PRN (22:22)
[2017-02-07] MEDS ORDERED: LORazepam 1 MG TAB PO PRN (22:26)
[2017-02-07] MEDS ORDERED: HYDROmorphONE/DILAUDID 1 MG/ML INJ IVP ONE (22:27)
[2017-02-07] MEDS ORDERED: PROTOCOL MAGNESIUM 1 DOSE IV PRN (22:56)
[2017-02-07] MEDS ORDERED: PROTOCOL K PHOSPHATE 1 DOSE IV PRN (22:56)
[2017-02-07] MEDS ORDERED: PROTOCOL POTASSIUM 1 DOSE MISC PRN (22:56)
[2017-02-07] MEDS ORDERED: NS 500 ML IV SCH (23:00)
[2017-02-08] MEDS: NS W/ 20 KCl/L 1,000 ML IV SCH ×2 (01:30→13:26)
[2017-02-08] MEDS: HYDROmorphone HCL/NS/PF 0.4 MG/2 ML SYR IVP PRN ×5 (01:31→20:51)
[2017-02-08] MEDS: THIAMINE HCL 100 MG TAB PO SCH ×2 (02:30→11:17)
[2017-02-08] MEDS ORDERED: MAGNESIUM SULF 1 GM/DEXTROSE 100 ML IV ONE ×2 (03:32→10:31)
[2017-02-08] MEDS: POTASSIUM CL 20 MEQ/15 ML UDCUP PO ONE ×2 (03:44→04:02)
[2017-02-08] MEDS: ONDANSETRON 4 MG/2 ML VIAL IVP PRN ×2 (03:53→20:56)
[2017-02-08] MEDS ORDERED: ALBUTEROL 3 ML DEYVIAL IH PRN (04:07)
[2017-02-08] MEDS: POTASSIUM Cl (KCl) 100 ML IV SCH ×7 (04:22→23:53)
[2017-02-08 04:27] LABS: PLATELET COUNT 147 10^3/uL (150-400)
[2017-02-08 04:38] LABS: INR 1.2 (0.83-1.16); PROTIME(PATIENT) 15.2 SEC (12.0-15.0)
[2017-02-08] MEDS ORDERED: PROTOCOL CALCIUM 1 DOSE IV PRN (05:00)
[2017-02-08] MEDS ORDERED: CALCIUM GLUCONATE 50 ML IV ONE ×2 (05:05→10:02)
[2017-02-08] MEDS ORDERED: LORazepam 2 MG/ML INJ IVP PRN (05:11)
[2017-02-08] MEDS ORDERED: LORazepam 2 MG/ML INJ ONE (05:22)
--- NOTE | 2017-02-08 06:42 | GHP ---
[f rep st] HISTORY AND PHYSICAL DATE OF ADMISSION: 02/07/2017 SOURCE: Patient provides history, appears reliable. Her EMR was also reviewed and case discussed wi ED provider before transfer from [facility] [place]. CHIEF COMPLAINT: Epigastric pain, nausea, vomiting. HISTORY OF PRESENT ILLNESS: This is a pleasant 37-year-old female with a past medical history signif icant for asthma, COPD with chronic oxygen dependence, remote history of drug abuse and tobacco abuse who was recently sober until a few days ago, who presents to the emergency department with complaint s of intractable nausea, vomiting, and epigastric pain. Patient states that she overall has been fee ling sickly for the past year, but developed her acute symptoms of nausea and vomiting in the last 3- 5 days. Patient denies any known sick contacts. She has no recent travel or exposures reported. Th e patient reports that she developed epigastric pain and right upper quadrant pain, followed by the n ausea and vomiting. She denies any hematemesis. Denies any melena, but has had a few drops of brigh t red blood per rectum with occasional bowel movements. The patient also reports chronic cough and p osttussive emesis. Cough is productive of yellow to white sputum. The patient denies any fevers or chills or sweats. REVIEW OF SYSTEMS: GENERAL: No fevers, chills, sweats. SKIN: The patient denies any acute rashes sores. ENT: Patient does report sore throat following episodes of nausea, vomiting. Denies any rhi norrhea or congestion. CV: No chest pain palpitations. RESPIRATORY: Patient reports some respirat ory bilateral chest tightness due to shortness of air, wheezing, cough as noted above. GI: Patient with nausea and vomiting. She does note some intermittent streaks of blood in her emesis, but no fra nk blood. Otherwise, she also reports a few drops of bright red blood per rectum occasionally with B Ms. : No dysuria or hematuria. Urine has been dark per the patient. MUSCULOSKELETAL: Patient i s complaining of burning upper arms at her IV sites with KCl. No other musculoskeletal complaints. EXTREMITIES: The patient does report a history of a little bit of edema in her left foot compared to the right, now resolved after elevation. NEURO: Patient reports occasional numbness and tingling i n her fingertips. No headache. No changes in vision. No focal weakness. Remainder of review of systems negative, except as noted above. ALLERGIES: No known drug allergies. HOME MEDICATIONS: Albuterol and Flovent. PAST MEDICAL HISTORY: Significant for interstitial lung disease, history of pneumonia in 2012, alcoh ol dependence with recent relapse, history of pancreatitis, asthma, COPD with oxygen dependence, 2 L/ minute continuous nasal cannula, a history of drug abuse. PAST SURGICAL HISTORY: Patient reports a cholecystectomy and BTL. FAMILY HISTORY: The patient reports she has 3 children who are all healthy. She is not acquainted c urrently with her other family members. SOCIAL HISTORY: Patient lives with her children. She had a relapse with recent alcohol intake a few days ago. She has remote history of drug use and remote history of tobacco use, quitting 1 year ago . CODE STATUS: Full. PHYSICAL EXAM: VITALS: On upon arrival at [facility] [place], blood pressure 121/82, heart rate was 94, O2 saturat ion 90% on room air, temperature 36.6. Vitals on the floor: Blood pressure 112/78, heart rate 71, O 2 sat 90% on 3 L by nasal cannula, temperature 37.3. GENERAL: No acute distress. Patient is sittin g up in chair, asleep. She wakes to name. During interview, she becomes increasingly restless, comp laining of burning pain at her IV sites with KCl running. HEAD: Normocephalic, atraumatic. EYES: Extraocular muscles grossly intact. No scleral icterus or conjunctival injection. ENT: Mucous memb ranes are dry. No oropharyngeal erythema or exudates. Dentition fair. NECK: Supple. Trachea midl ine. CV: Regular rate and rhythm. No murmurs, rubs, or gallops appreciated. RESPIRATORY: Patient with bibasilar crackles greater on the right compared to the left. No wheezing or rhonchi. Unlabor ed breathing. ABDOMEN: Obese, soft, nontender to palpation. No rebound, guarding, or masses apprec iated. : No suprapubic tenderness to palpation. No Kruger in place. Moves all extremities. NEUR O: Grossly nonfocal extremity weakness. Awake, alert, oriented x3. PSYCH: Patient is a little bit restless, slightly anxious, but otherwise cooperative. LABORATORY STUDIES: Initial lab findings: Sodium 143, potassium 2.5, chloride 89, CO2 is 30, anion gap 24, creatinine 0.5, GFR greater than 60, glucose 143, calcium 8.6, total bilirubin is 2.7, conjug ated bilirubin 2.0, ALT 61, AST 34, alkaline phosphatase is 436, total protein 7.0, albumin 3.9, lipa se 126. Beta HCG negative. Magnesium 1.3. Ionized calcium 0.9. Repeated BMP sodium 143, potassium 2.7 up from 2.2, chloride 98, CO2 29, anion gap 18, creatinine 0.5, glucose 83, calcium 7.2, ionized calcium 0.9, magnesium 1.6, phosphorus 2.8. PT 15.2, INR is 1.20, PTT 28.1. WBC 4.15, H and H 13.3 and 39.7, platelet count is 147, no bands. EKG, I reviewed myself, sinus rhythm in the 70s. T-wave inversions in the anterior leads, nonspecifi c T-wave flattening in the inferior leads. No acute ST changes. QTc is 475. CT abdomen and pelvis report and image reviewed, suspicious for colitis, diffuse fatty infiltration o f the liver, cholecystectomy, a dilated common bile duct to 12 mm in diameter, up to 16 mm in diamete r. Ascending and transverse colon could have diffusely thickened esparza and mild edema along with mar gins of the colon. No abscess. No ascites. Appendix is normal. Small bowel not dilated. Findings suspicious of colitis. ASSESSMENT AND PLAN: A pleasant 37-year-old female with history of alcohol dependence with recent re lapse, presents with complaints of several days of epigastric pain, intractable nausea and vomiting. 1. Hypokalemia. Patient's potassium will be monitored and replacement protocol has been ordered. W ill continue to monitor remainder of electrolytes. 2. Hypomagnesemia, replacement has been ordered IV. 3. Nausea and vomiting. The patient has not been able to tolerate any oral replacement. She develo ps some immediate nausea and vomiting. We will continue with antiemetics and electrolyte replacement s, IV as needed. Will add Protonix for GI prophylaxis and possible underlying gastritis. 4. Colitis on imaging. Patient is afebrile, does not have SIRS criteria. We will start Cipro, Flag yl. 5. Epigastric pain, currently improved. Continue with p.r.n. pain medications IV, as patient is sti ll not able to tolerate p.o. 6. Alcohol abuse, cessation recommended. [facility] protocol in place. Ativan p.r.n. 7. Asthma and chronic obstructive pulmonary disease. Continue with oxygen dependence, nebulizers. No evidence of exacerbation at this time. Hold off on steroids. 8. Hyperglycemia, this is nonfasting lab. Repeat glucose has been within normal limits. 9. Hyperalbuminemia. The patient without any visual jaundice or scleral icterus. Possibly related to contraction with nausea and vomiting. We will plan to IV hydrate, control patient's symptoms and repeat LFTs in the morning. 10. Transaminitis. Again, as noted above. Continue with IV fluids and repeat CMP in the morning. 11. Fluid, electrolyte, nutrition. IV fluids for hydration. Electrolyte replacement p.r.n. Advance diet as tolerated. 12. Prophylaxis. Protonix, Lovenox. 13. Code status is full. DISPOSITION: Patient admitted to observation on PCU given her low potassium. Will await repeat salud palacios after replacement. /[id number]/MODL
[2017-02-08 08:41] LABS: CREATINE KINASE 50 IU/L (0-156)
[2017-02-08] MEDS: PANTOPRAZOLE SODIUM 40 MG VIAL IVP SCH ×2 (08:44→20:27)
[2017-02-08] MEDS ORDERED: CIPROFLOXACIN 400 MG/DEXTROSE 200 ML IV SCH (09:00)
--- NOTE | 2017-02-08 09:54 | HOSPPROG ---
Hospitalist Progress Note Assessment/Plan: # possible colitis - may be the cause of her N/V; no diarrhea - will hold on abx currently - check GI pathogen panel - check esr, crp # RUQ pain - check RUQ US to r/p cholecystitis # elevated LFTs - check RUQ US - check hepatitis panel - may be d/t etOH abuse but high alk phos # N/V/inability to rob PO - gastritis vs colitis - cont protonix IV bid # severe hypoK and hypoMg - replete # etOH abuse - CIWA; no significant w/d currently; desires sobriety # COPD/asthma - chronic; cont inhalers # hx drug abuse - will explore further tomorrow - hepatitis panel sent 35 minutes spent, direct face to face patient care time from 9:05 to 9:40a Subjective: ongoing abdominal pain Objective: Vital Signs Temp Pulse Resp BP Pulse Ox 38.2 C 65 11 L 110/79 89 L 02/08/17 08:00 02/08/17 08:00 02/08/17 08:00 02/08/17 08:00 02/08/17 08:00 Laboratory Results 02/08/17 04:18 02/08/17 01:30 02/07/17 02/08/17 02/09/17 05:59 05:59 05:59 Intake Total 1650 Balance 1650 PT 15.2 SEC (12.0-15.0) H 02/08/17 04:18 INR 1.20 (0.83-1.16) H 02/08/17 04:18 - Physical Exam Ears, Nose, Mouth, Throat: moist mucous membranes Cardiovascular: regular rate and rhythym, no murmur, rub, or gallop Respiratory: no respiratory distress, no rales or rhonchi, clear to auscultation Gastrointestinal: normoactive bowel sounds, other (soft, RUQ pain, ?Saldivar's sign), No hepatosplenomegally ICD10 Worksheet Patient Problems: Problems Problem Status Onset Acute bronchitis Acute Severe sepsis Acute Hypokalemia Acute Vomiting Acute Colitis Acute
[2017-02-08] MEDS: FOLIC ACID 1 MG TAB PO SCH (10:56)
[2017-02-08] MEDS: ENOXAPARIN 40 MG/0.4 ML SYR SC SCH (10:56)
[2017-02-08] MEDS: MULTIVITAMINS 1 EACH TAB PO SCH (11:17)
[2017-02-08 12:08] LABS: HEPATITIS B SURFACE ANTIGEN NEGATIVE (NEGATIVE)
[2017-02-08 12:14] LABS: HEPATITIS A ANTIBODY IGM (BCH) NEGATIVE (NEGATIVE); HEPATITIS B CORE AB IGM NEGATIVE (NEGATIVE)
[2017-02-08 12:26] LABS: HEPATITIS C ANTIBODY TOTAL NEGATIVE (NEGATIVE)
--- NOTE | 2017-02-08 14:45 | ASMTCMCOM ---
CM Note CM Note Notes: 02/08/2017 Case Management Note Attempted to met w/pt for CAGE screening. Pt requested delaying meeting until tomorrow when feeling better. Pt nephew Jose Lagos [phone] was present in room. Case Management d/c poc: to be determined. Anticipating independent d/c when medically stable d/t pt age, family support and activity levels prior to admission. Case Management to follow. Date Signed: 02/08/2017 02:45 PM Electronically Signed By:Rosemary Tripathi RN
--- NOTE | 2017-02-08 14:45 | ASMTCMCOM ---
CM Note CM Note Notes: 02/08/2017 Case Management Note Attempted to met w/pt for CAGE screening. Pt requested delaying meeting until tomorrow when feeling better. Pt nephew Jose Lagos [phone] was present in room. Case Management d/c poc: to be determined. Anticipating independent d/c when medically stable d/t pt age, family support and activity levels prior to admission. Case Management to follow. Date Signed: 02/08/2017 02:45 PM Electronically Signed By:Rosemary Tripathi RN
--- NOTE | 2017-02-08 14:45 | ASMTCMCOM ---
CM Note CM Note Notes: 02/08/2017 Case Management Note Attempted to met w/pt for CAGE screening. Pt requested delaying meeting until tomorrow when feeling better. Pt nephew Jose Lagos [phone] was present in room. Case Management d/c poc: to be determined. Anticipating independent d/c when medically stable d/t pt age, family support and activity levels prior to admission. Case Management to follow. Date Signed: 02/08/2017 02:45 PM Electronically Signed By:Rosemary Tripathi RN
[2017-02-08] MEDS ORDERED: ALBUTEROL 60 PUFFS/8 GM MDI IH PRN (16:01)
[2017-02-08] MEDS: FLUTICASONE/SALMETER 250/50MCG DISKUS IH SCH (21:20)
[2017-02-08] MEDS ORDERED: POTASSIUM CL 20 MEQ TAB PO ONE (23:00)
[2017-02-09] MEDS: NS W/ 20 KCl/L 1,000 ML IV SCH ×2 (01:00→20:41)
[2017-02-09] MEDS: HYDROmorphone HCL/NS/PF 0.4 MG/2 ML SYR IVP PRN ×2 (01:01→05:12)
[2017-02-09 04:26] LABS: PLATELET COUNT 138 10^3/uL (150-400)
[2017-02-09] MEDS: ONDANSETRON 4 MG/2 ML VIAL IVP PRN ×3 (05:16→20:42)
[2017-02-09] MEDS ORDERED: MAGNESIUM SULF 2 GM/WATER 50 ML IV ONE ×2 (08:36→10:12)
--- NOTE | 2017-02-09 08:55 | HOSPPROG ---
Hospitalist Progress Note Assessment/Plan: # possible colitis - may be the cause of her N/V; no diarrhea -cont to hold abx - check GI pathogen panel - pending this am # RUQ pain - better; # elevated LFTs/mild hepatomegaly/steatosis - possibly d/t etOH - alk phos more elevated than transaminases - follow; s/p cholecystectomy # N/V/inability to rob PO - improving; ADAT - cont protonix IV bid # severe hypoK/hypoMg/hypoCa - better, cont to replete; dc tele # etOH abuse - CIWA; no significant w/d currently; desires sobriety # COPD/asthma - chronic; cont inhalers # hx drug abuse Subjective: feels overall stronger today; still has not eaten Objective: Vital Signs Temp Pulse Resp BP Pulse Ox 36.7 C 76 17 104/71 93 02/09/17 08:00 02/09/17 08:00 02/09/17 08:00 02/09/17 08:00 02/09/17 08:00 Laboratory Results 02/09/17 04:18 02/09/17 04:18 02/08/17 02/09/17 02/10/17 05:59 05:59 05:59 Intake Total 1650 1895 1161 Output Total 1300 Balance 2995 396 6833 PT 15.2 SEC (12.0-15.0) H 02/08/17 04:18 INR 1.20 (0.83-1.16) H 02/08/17 04:18 tele personally reviewed abd US reviewed - Physical Exam Constitutional: no apparent distress, appears nourished Cardiovascular: regular rate and rhythym, no murmur, rub, or gallop Respiratory: no respiratory distress, no rales or rhonchi, clear to auscultation Gastrointestinal: normoactive bowel sounds, no palpable masses, tenderness (mild ), other (soft), No guarding, No rebound, No distension ICD10 Worksheet Patient Problems: Problems Problem Status Onset Acute bronchitis Acute Severe sepsis Acute Hypokalemia Acute Vomiting Acute Colitis Acute
[2017-02-09] MEDS: oxyCODONE IR 5 MG TAB PO PRN ×3 (09:00→20:41)
[2017-02-09] MEDS: ALBUTEROL 200 PUFFS/18 GM MDI IH PRN ×2 (09:21→21:08)
[2017-02-09] MEDS: FLUTICASONE/SALMETER 250/50MCG DISKUS IH SCH ×2 (09:24→21:09)
[2017-02-09] MEDS ORDERED: POTASSIUM CL 10 MEQ TAB PO ONE ×2 (10:09→18:59)
[2017-02-09] MEDS ORDERED: CALCIUM GLUCONATE 50 ML IV ONE (10:18)
[2017-02-09] MEDS: PANTOPRAZOLE SODIUM 40 MG VIAL IVP SCH ×2 (11:22→20:41)
--- NOTE | 2017-02-09 11:27 | PDMN ---
Medical Necessity Medical necessity: change to IP; los>2mn for possible colitis, RUQ pain, elevated LFTs, N/V with inability to tolerate oral intake, severe hypokalemia and hypoMG; comorbid etoh abuse, COPD/ asthma, and hx drug abuse; per order and progress note 02/08/17
[2017-02-09] MEDS: VANCOMYCIN 125 MG/2.5 ML UDL PO SCH ×4 (11:34→20:41)
[2017-02-09] MEDS: THIAMINE HCL 100 MG TAB PO SCH (11:35)
[2017-02-09] MEDS: ENOXAPARIN 40 MG/0.4 ML SYR SC SCH (11:35)
[2017-02-09] MEDS: MULTIVITAMINS 1 EACH TAB PO SCH (11:35)
[2017-02-09] MEDS: FOLIC ACID 1 MG TAB PO SCH (11:35)
--- NOTE | 2017-02-09 12:19 | ASMTCMCOM ---
CM Note CM Note Notes: 02/09/2017 Case Management Note Met w/pt to complete CAGE screen. Pt answered affirmative to all questions except needing a drink in the morning. Provided alcohol cessation resources to pt. Pt reports having a counselor and plans to schedule appointments after d/c. Case Management d/c poc: home independent w/family support when medically stable. Date Signed: 02/09/2017 12:18 PM Electronically Signed By:Rosemary Tripathi RN
[2017-02-10] MEDS: oxyCODONE IR 5 MG TAB PO PRN (03:17)
[2017-02-10 04:21] VITALS: RESP 18
[2017-02-10 04:33] LABS: PLATELET COUNT 154 10^3/uL (150-400)
[2017-02-10] MEDS: VANCOMYCIN 125 MG/2.5 ML UDL PO SCH ×2 (05:41→11:41)
[2017-02-10] MEDS: NS W/ 20 KCl/L 1,000 ML IV SCH (05:44)
[2017-02-10 08:13] VITALS: BP 121/79; PULSE 62; TEMP 98.3; O2SAT 94
[2017-02-10] MEDS ORDERED: POTASSIUM CL 10 MEQ TAB PO ONE (08:33)
[2017-02-10] MEDS ORDERED: MAGNESIUM SULF 1 GM/DEXTROSE 100 ML IV ONE (08:40)
[2017-02-10] MEDS: FLUTICASONE/SALMETER 250/50MCG DISKUS IH SCH (08:46)
[2017-02-10] MEDS: PANTOPRAZOLE SODIUM 40 MG VIAL IVP SCH (09:04)
[2017-02-10] MEDS: THIAMINE HCL 100 MG TAB PO SCH (09:04)
[2017-02-10] MEDS: FOLIC ACID 1 MG TAB PO SCH (09:04)
[2017-02-10] MEDS: MULTIVITAMINS 1 EACH TAB PO SCH (09:04)
[2017-02-10] MEDS: ENOXAPARIN 40 MG/0.4 ML SYR SC SCH (09:05)
--- NOTE | 2017-02-10 11:31 | ASDISCHSUM ---
Discharge Information Plan Status:Home with No Needs Medically Cleared to Leave:02/10/2017 Discharge Date:02/10/2017 CM D/C Disposition:Home, Routine, Self-Care ADT D/C Disposition:Home, Routine, Self-Care Projected Discharge Date:02/10/2017 Transportation at D/C:Family Discharge Delay Reason: Follow-Up Date:02/10/2017 Discharge Slot: Final Diagnosis: Placement Information Patient Contact Information Contact Name:MILEY Relationship:Grandparent Address: Work Phone: City: [facility] Phone: State/[facility] Code: Email: Financial Information Financial Class: Primary Plan Desc:MEDICAID 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 Pt requested delaying meeting until tomorrow when feeling better. Pt theodore Jose Correacainrosalina [phone] was present in room. Case Management d/c poc: to be determined. Anticipating independent d/c when medically stable d/t pt age, family support and activity levels prior to admission. Case Management to follow. Date Signed: 02/08/2017 02:45 PM Electronically Signed By:Rosemary Tripathi RN [facility] CM Progress Note CM Note CM Note Notes: 02/09/2017 Case Management Note Met w/pt to complete CAGE screen. Pt answered affirmative to all questions except needing a drink in the morning. Provided alcohol cessation resources to pt. Pt reports having a counselor and plans to schedule appointments after d/c. Case Management d/c poc: home independent w/family support when medically stable. Date Signed: 02/09/2017 12:18 PM Electronically Signed By:Rosemary Tripathi RN Intervention Information
--- NOTE | 2017-02-10 11:31 | ASDISCHSUM ---
Discharge Information Plan Status:Home with No Needs Medically Cleared to Leave:02/10/2017 Discharge Date:02/10/2017 CM D/C Disposition:Home, Routine, Self-Care ADT D/C Disposition:Home, Routine, Self-Care Projected Discharge Date:02/10/2017 Transportation at D/C:Family Discharge Delay Reason: Follow-Up Date:02/10/2017 Discharge Slot: Final Diagnosis: Placement Information Patient Contact Information Contact Name:MILEY Relationship:Grandparent Address: Work Phone: City: [facility] Phone: State/[employer] Code: Email: Financial Information Financial Class: Primary Plan Desc:MEDICAID HEALTH FIRST 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 Pt requested delaying meeting until tomorrow when feeling better. Pt theodore Jose Correacainrosalina [phone] was present in room. Case Management d/c poc: to be determined. Anticipating independent d/c when medically stable d/t pt age, family support and activity levels prior to admission. Case Management to follow. Date Signed: 02/08/2017 02:45 PM Electronically Signed By:Rosemary Tripathi RN [facility] CM Progress Note CM Note CM Note Notes: 02/09/2017 Case Management Note Met w/pt to complete CAGE screen. Pt answered affirmative to all questions except needing a drink in the morning. Provided alcohol cessation resources to pt. Pt reports having a counselor and plans to schedule appointments after d/c. Case Management d/c poc: home independent w/family support when medically stable. Date Signed: 02/09/2017 12:18 PM Electronically Signed By:Rosemary Tripathi RN Intervention Information
--- NOTE | 2017-02-10 11:31 | ASDISCHSUM ---
Discharge Information Plan Status:Home with No Needs Medically Cleared to Leave:02/10/2017 Discharge Date:02/10/2017 CM D/C Disposition:Home, Routine, Self-Care ADT D/C Disposition:Home, Routine, Self-Care Projected Discharge Date:02/10/2017 Transportation at D/C:Family Discharge Delay Reason: Follow-Up Date:02/10/2017 Discharge Slot: Final Diagnosis: Placement Information Patient Contact Information Contact Name:MILEY Relationship:Grandparent Address: Work Phone: City: 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 Pt requested delaying meeting until tomorrow when feeling better. Pt theodore Jose Correacainrosalina [phone] was present in room. Case Management d/c poc: to be determined. Anticipating independent d/c when medically stable d/t pt age, family support and activity levels prior to admission. Case Management to follow. Date Signed: 02/08/2017 02:45 PM Electronically Signed By:Rosemary Tripathi RN [facility] CM Progress Note CM Note CM Note Notes: 02/09/2017 Case Management Note Met w/pt to complete CAGE screen. Pt answered affirmative to all questions except needing a drink in the morning. Provided alcohol cessation resources to pt. Pt reports having a counselor and plans to schedule appointments after d/c. Case Management d/c poc: home independent w/family support when medically stable. Date Signed: 02/09/2017 12:18 PM Electronically Signed By:Rosemary Tripathi RN Intervention Information
--- NOTE | 2017-02-10 11:38 | GDS ---
[f rep st] DISCHARGE SUMMARY ALL DIAGNOSES: 1. Alcohol abuse. 2. Clostridium difficile colitis. 3. Nausea, vomiting. 4. Elevated liver function tests with mild hepatomegaly and steatosis. 5. Severe hypokalemia, hypomagnesemia, hypocalcemia. 6. Chronic obstructive pulmonary disease and asthma. HOSPITAL COURSE: 37-year-old female presented with inability to tolerate p.o. CT scan of her abdomen showed possible mild colitis. Stool was positive for C difficile. She has been started on treatment for C difficile with oral vancomycin. She is given a prescription for a total of 10 days of treatment. She had stopped drinking about 3 days prior to presentation. She had some mild withdrawal that was not severe here. I strongly recommended cessation. She likely had some component of gastritis, causing her inability to tolerate p.o. I have given her a prescription of Protonix. I have also recommended that she stop ibuprofen. She had severe electrolyte abnormalities, likely due to malnutrition. Her potassium was as low as 2.2. On the day of discharge, it is 3.8, and she is tolerating food. Magnesium has also been aggressively repleted. It was as low as 1.3. Her ionized calcium was also slightly low. She has evidence of hepatitis, which I suspect is alcoholic. She may have some underlying steatosis as well. As above, strongly recommend cessation of alcohol. She should follow up with her PCP in about 1 week to have her LFTs rechecked. Her bilirubin has been stable at about 3 for the past few days. It is 3.4 on discharge. AST is 105. Alk phos is 291. ALT is normal at this time. She was very anxious to leave and threatened to leave AMA if I did not see her immediately. BILLING: I spent more than 30 minutes on the day of discharge coordinating care. /[id number]/MODL MTDD
== END 2017-02-10 11:50 | disposition home or self-care (01) | DRG 372 ==
LOC: CED 20:37 → CEDHOLD 22:12 → F2W 02-08 00:55 → OBSVTOIN 02-08 16:57
PROVIDERS: ADMIT Family Medicine; ATTEND Family Medicine
DX: A04.72 Enterocolitis due to Clostridium difficile, not specified as recurrent (principal); K29.70 Gastritis, unspecified, without bleeding; K70.10 Alcoholic hepatitis without ascites; F10.10 Alcohol abuse, uncomplicated; E46 Unspecified protein-calorie malnutrition; E87.6 Hypokalemia; E83.42 Hypomagnesemia; E83.51 Hypocalcemia; J42 Unspecified chronic bronchitis; Z99.81 Dependence on supplemental oxygen; Z87.891 Personal history of nicotine dependence
CPT/HCPCS: 74177-PO; 80048-PO; 80053-PO; 80076-PO; 81003-PO; 81015-PO; 82550-PO; 83690-PO; 83735-PO; 84100-PO; 84132-PO; 84703-PO; 85025-PO; 85610-PO; 85730-PO; 96365; 96366; G0378; G0472; J0610; J0744; J1170; J1650; J1885; J2060; J2405; J3475; Q9967

== ENCOUNTER → 2017-11-27 | Outpatient (CLI) | payer MEDICAID | LOC: CIMAGING 12:01 | PROVIDERS: ATTEND Physician Assistant | DX: M25.561 Pain in right knee (principal) | CPT/HCPCS: 73564-PO ==

== ENCOUNTER → 2018-01-05 | Outpatient (CLI) | payer MEDICAID | LOC: FIMAGING 12:32 | PROVIDERS: ATTEND Physician Assistant | DX: M25.561 Pain in right knee (principal); M25.562 Pain in left knee; M25.461 Effusion, right knee; M25.462 Effusion, left knee; M22.41 Chondromalacia patellae, right knee ==

== ENCOUNTER → 2018-02-16 | Outpatient (CLI) | payer MEDICAID | LOC: CIMAGING 10:09 | PROVIDERS: ATTEND Internal Medicine Pulmonary Disease | DX: R91.8 Other nonspecific abnormal finding of lung field (principal); J98.11 Atelectasis; J45.909 Unspecified asthma, uncomplicated; G47.33 Obstructive sleep apnea (adult) (pediatric) | CPT/HCPCS: 71250-PO ==